=== PATIENT | female | born 1950 | race Hispanic/Latino ===

== ENCOUNTER 2017-01-24 17:25 | Inpatient (IN) | payer OTHER ==
--- NOTE | 2017-01-24 18:29 | Emergency Department Report ---
ED General Adult HPI - General Chief complaint: Extremity Injury, Lower Stated complaint: RT LEG PAIN/LOW 02 Time Seen by Provider: 01/24/17 18:28 Source: patient, EMS (ems notes not available at time of chart dictation), RN notes reviewed Mode of arrival: Stretcher Limitations: Physical Limitation - History of Present Illness Initial comments: This is a 66-year-old female. She is previously unknown to me. She does not have a primary care doctor. She denies chronic medical conditions that she is aware of. She is brought to the hospital by EMS. Patient complains of shortness of breath , weakness, abdominal distention, lower extremity swelling. This is going on for the past 3-4 days. There is no chest pain. There is positive shortness of breath. Patient reports no recent trips. No recent hospital admissions. No recent surgeries. No hematemesis. No bright red blood per rectum. No intracranial hemorrhage. Mild cough. As per triage nurse documentation, patient is found to be hypoxic with a pulse ox of 70%. A stat arterial blood gas demonstrated hypoxemic respiratory failure , with a partially compensated respiratory acidosis. I had an extensive discussion with the patient and her daughter. The patient was started on BiPAP therapy. The patient and her daughter gave and written and verbal consent to have an ultrasound done of her heart, and my bedside echocardiogram demonstrated a hyperdynamic left ventricle, no large effusion, and what appeared to be a dilated right atrium and right ventricle. The patient was started on BiPAP therapy, case was discussed with vascular surgery, Dr. Lr, as we anticipate that the patient may have a submassive or massive pulmonary embolus. He recommends initiation of empiric heparin therapy, bolus and drip. The patient indicated no constant indications to systemic anticoagulation. The case was also discussed with the ICU physician, Dr. Salomon, who agreed with this plan of care, authorized triaged to the ICU. -: Gradual Location: abdomen, right, lower extremity Consistency: constant Improves with: rest Worsens with: movement Associated Symptoms: malaise, shortness of breath, weakness - Related Data Home Medications Medication Instructions Recorded Confirmed Last Taken No Known Home Medications [No 01/24/17 01/24/17 Unknown Reported Home Medications] Allergies Allergy/AdvReac Type Severity Reaction Status Date / Time phenobarbital Allergy Anaphylaxis Verified 01/24/17 18:23 ED Review of Systems ROS: Stated complaint: RT LEG PAIN/LOW 02 Other details as noted in HPI Constitutional: malaise, weakness ENT: congestion. denies: epistaxis Respiratory: shortness of breath Cardiovascular: dyspnea on exertion, edema Gastrointestinal: abdominal pain Genitourinary: as per HPI Musculoskeletal: joint swelling, arthralgia, myalgia Skin: denies: lesions Neurological: weakness ED Past Medical Hx - Medications Home Medications: Home Medications Medication Instructions Recorded Confirmed Last Taken Type No Known Home Medications [No 01/24/17 01/24/17 Unknown History Reported Home Medications] ED Physical Exam - General Limitations: Physical Limitation General appearance: alert, in no apparent distress - Head Head exam: Present: atraumatic, normocephalic - Eye Eye exam: Present: normal appearance, EOMI. Absent: nystagmus - ENT ENT exam: Present: normal exam, normal orophraynx, mucous membranes moist, normal external ear exam - Neck Neck exam: Present: normal inspection, full ROM. Absent: tenderness, meningismus - Respiratory Respiratory exam: Present: respiratory distress - Cardiovascular Cardiovascular Exam: Present: normal rhythm, tachycardia, normal heart sounds. Absent: systolic murmur, diastolic murmur, rubs, gallop - GI/Abdominal GI/Abdominal exam: Present: soft, distended, normal bowel sounds, other ( anasarca is noted). Absent: tenderness, guarding, rebound, rigid, pulsatile mass - Extremities Exam Extremities exam: Present: normal inspection, normal capillary refill, pedal edema, calf tenderness - Back Exam Back exam: Present: normal inspection, full ROM. Absent: tenderness, CVA tenderness (R), CVA tenderness (L), muscle spasm, paraspinal tenderness, vertebral tenderness - Neurological Exam Neurological exam: Present: alert, oriented X3, other (Extraocular movements intact. Tongue midline. No facial droop. Facial sensation intact to light touch in the V1, V2, V3 distribution bilaterally. 5 and 5 strength in 4 extremities.. Sensation is intact to light touch in 4 extremities.). Absent: motor sensory deficit - Psychiatric Psychiatric exam: Present: normal affect, normal mood - Skin Skin exam: Present: warm, dry, intact, normal color. Absent: rash ED Course Vital Signs 01/24/17 01/24/17 01/24/17 17:59 18:04 18:10 Temperature 98.2 F Pulse Rate 122 H 118 H Respiratory 16 17 Rate Blood Pressure 136/86 Blood Pressure [Left] O2 Sat by Pulse 98 88 90 Oximetry 01/24/17 01/24/17 01/24/17 18:20 18:30 18:40 Temperature Pulse Rate 120 H 118 H 119 H Respiratory 34 H 20 32 H Rate Blood Pressure 136/86 136/86 136/95 Blood Pressure [Left] O2 Sat by Pulse 88 87 Oximetry 01/24/17 01/24/17 01/24/17 18:50 18:57 19:00 Temperature Pulse Rate 118 H 100 H 114 H Respiratory 21 30 H 14 Rate Blood Pressure 136/95 147/102 Blood Pressure [Left] O2 Sat by Pulse 81 L 94 91 Oximetry 01/24/17 01/24/17 01/24/17 19:14 19:21 19:22 Temperature Pulse Rate 114 H 114 H 114 H Respiratory 12 25 H 18 Rate Blood Pressure 155/97 Blood Pressure 155/97 [Left] O2 Sat by Pulse 92 92 92 Oximetry 01/24/17 01/24/17 01/24/17 19:43 19:51 20:00 Temperature Pulse Rate 119 H 120 H Respiratory 23 22 Rate Blood Pressure 140/89 139/89 144/93 Blood Pressure [Left] O2 Sat by Pulse 96 87 93 Oximetry 01/24/17 01/24/17 01/24/17 20:11 20:21 20:30 Temperature Pulse Rate 119 H 117 H 117 H Respiratory 12 20 26 H Rate Blood Pressure 155/97 147/91 127/85 Blood Pressure [Left] O2 Sat by Pulse 94 92 91 Oximetry 01/24/17 01/24/17 01/24/17 20:41 20:51 21:00 Temperature Pulse Rate 117 H 116 H 114 H Respiratory 22 14 15 Rate Blood Pressure 127/85 143/89 146/81 Blood Pressure [Left] O2 Sat by Pulse 89 90 91 Oximetry 01/24/17 01/24/17 01/24/17 21:11 21:21 21:30 Temperature Pulse Rate 116 H 116 H 116 H Respiratory 19 21 23 Rate Blood Pressure 146/81 139/83 140/92 Blood Pressure [Left] O2 Sat by Pulse 89 89 90 Oximetry 01/24/17 01/24/17 01/24/17 21:41 21:51 22:00 Temperature Pulse Rate 115 H 115 H 115 H Respiratory 22 17 11 L Rate Blood Pressure 140/92 131/83 144/90 Blood Pressure [Left] O2 Sat by Pulse 90 90 91 Oximetry 01/24/17 01/24/17 01/24/17 22:11 22:21 22:30 Temperature Pulse Rate 114 H 113 H 114 H Respiratory 21 21 25 H Rate Blood Pressure 144/90 134/87 131/86 Blood Pressure [Left] O2 Sat by Pulse 90 90 89 Oximetry 01/24/17 01/24/17 22:41 23:15 Temperature Pulse Rate 113 H 112 H Respiratory 19 21 Rate Blood Pressure 131/83 Blood Pressure [Left] O2 Sat by Pulse 91 96 Oximetry - Reevaluation(s) Reevaluation #1: 01/24/17 19:36 differential diagnosis: Massive versus massive pulmonary embolus , congestive heart failure, pulmonary hypertension, pneumonia, multifactorial respiratory failure Reevaluation #2: 01/24/17 20:47 patient looking remarkably improved on BiPAP therapy. CT scan of the chest is negative for clots. Congestive heart failure is suspected. Heparin drip is discontinued. Vascular surgery consult was canceled. Given obesity, body habitus, patient most likely has obesity hypoventilation syndrome, obstructive sleep apnea, pulmonary hypertension, all of which are likely contributing to acute decompensation including right-sided heart failure. A Weller catheter is placed. High dose Lasix as ordered. Hospital physician, , except the patient to their service. Case is discussed with the milk of lime slaker on-call, Dr. Renee, who agrees with plan of care, will see patient as a consult. ED Medical Decision Making - Lab Data Result diagrams: 01/24/17 19:25 01/24/17 18:50 Vital Signs 01/24/17 01/24/17 01/24/17 17:59 18:04 18:10 Temperature 98.2 F Pulse Rate 122 H 118 H Respiratory 16 17 Rate Blood Pressure 136/86 Blood Pressure [Left] O2 Sat by Pulse 98 88 90 Oximetry 01/24/17 01/24/17 01/24/17 18:57 19:14 19:22 Temperature Pulse Rate 100 H 114 H 114 H Respiratory 30 H 12 18 Rate Blood Pressure Blood Pressure 155/97 [Left] O2 Sat by Pulse 94 92 92 Oximetry Lab Results 01/24/17 01/24/17 01/24/17 Range/Units 18:42 18:50 18:50 WBC RBC Hgb Hct MCV MCH MCHC RDW Plt Count Lymph % (Auto) [place] % (Auto) Eos % (Auto) Baso % (Auto) Lymph # [place] # Eos # Baso # Add Manual Diff Seg Neutrophils % Seg Neutrophils # PT 15.9 H (12.2-14.9) Sec. INR 1.28 H (0.87-1.13) APTT 29.0 (24.2-36.6) Sec. D-Dimer 1566.79 H (0-234) ng/mlDDU POC ABG pH 7.330 L (7.35-7.45) POC ABG pCO2 73.5 H (35-45) POC ABG pO2 36 L (80-105) POC ABG HCO3 38.7 POC ABG Total CO2 41 POC ABG O2 Sat 62 POC ABG Base Excess 13 FiO2 21 % Sodium 140 (137-145) mmol/L Potassium 5.5 H (3.6-5.0) mmol/L Chloride 94.7 L (98-107) mmol/L Carbon Dioxide 35 H (22-30) mmol/L Anion Gap 16 mmol/L BUN 26 H (7-17) mg/dL Creatinine 1.1 (0.7-1.2) mg/dL Estimated GFR 50 ml/min BUN/Creatinine Ratio 23.63 % Glucose 128 H (65-100) mg/dL Calcium 9.5 (8.4-10.2) mg/dL Total Bilirubin 1.90 H (0.1-1.2) mg/dL AST 69 H (5-40) units/L ALT 52 (7-56) units/L Total Creatine Kinase (30-135) units/L NT-Pro-B Natriuret Pep (0-900) pg/mL Total Protein 7.0 (6.3-8.2) g/dL Albumin 3.5 L (3.9-5) g/dL Albumin/Globulin Ratio 1.0 % 01/24/17 01/24/17 01/24/17 Range/Units 18:50 18:50 19:25 WBC TNR RBC TNR Hgb TNR Hct TNR MCV TNR MCH TNR MCHC TNR RDW TNR Plt Count TNR Lymph % (Auto) TNR [place] % (Auto) TNR 12.1 H Eos % (Auto) TNR 0.2 Baso % (Auto) TNR Lymph # TNR [place] # TNR 0.9 H Eos # TNR 0.0 Baso # TNR 0.2 H Add Manual Diff TNR Seg Neutrophils % TNR 77.7 H Seg Neutrophils # TNR 5.5 PT (12.2-14.9) Sec. INR (0.87-1.13) APTT (24.2-36.6) Sec. D-Dimer (0-234) ng/mlDDU POC ABG pH (7.35-7.45) POC ABG pCO2 (35-45) POC ABG pO2 (80-105) POC ABG HCO3 POC ABG Total CO2 POC ABG O2 Sat POC ABG Base Excess FiO2 % Sodium (137-145) mmol/L Potassium (3.6-5.0) mmol/L Chloride (98-107) mmol/L Carbon Dioxide (22-30) mmol/L Anion Gap mmol/L BUN (7-17) mg/dL Creatinine (0.7-1.2) mg/dL Estimated GFR ml/min BUN/Creatinine Ratio % Glucose (65-100) mg/dL Calcium (8.4-10.2) mg/dL Total Bilirubin (0.1-1.2) mg/dL AST (5-40) units/L ALT (7-56) units/L Total Creatine Kinase 119 (30-135) units/L NT-Pro-B Natriuret Pep 9742 H (0-900) pg/mL Total Protein (6.3-8.2) g/dL Albumin (3.9-5) g/dL Albumin/Globulin Ratio % - EKG Data -: EKG Interpreted by Me Rate: tachycardia - EKG Data When compared to previous EKG there are: previous EKG unavailable 01/24/17 19:37 EKG demonstrates sinus tachycardia, 116 bpm, incomplete right bundle branch block, normal intervals, right axis deviation, not consistent with STEMI, limited by motion artifact. - Radiology Data Radiology results: report reviewed, image reviewed xr chest: cardiomegaly? chf CT scan of chest demonstrates no pulmonary embolus. Pleural effusions are noted. Cardiomegaly is noted. No dissection is noted. Critical Care Time: Yes Critical care time in (mins) excluding proc time.: 90 Critical care attestation.: If time is entered above; I have spent that time in minutes in the direct care of this critically ill patient, excluding procedure time. Critical Care Time: Critical care time includes multiple bedside evaluations, interpretation of laboratory studies, radiology studies, discussion with multiple consulting services, including hospital medicine, critical care medicine and vascular surgery. This does not include procedure time. ED Disposition Clinical Impression: Acute hypoxemic respiratory failure Disposition: OP ADMITTED IP TO THIS HOSP Is pt being admited?: Yes Condition: Critical
[2017-01-24 18:48] LABS: ISTAT Base Excess 13; ISTAT DEVICE 0; ISTAT HCO3 38.7; ISTAT PCO2 73.5 (35-45); ISTAT PO2 36 (80-105); ISTAT SO2 62; ISTAT TCO2 41
[2017-01-24 19:20] LABS: Eosinophils % (Auto) TNR % (0.0-4.3); Hematocrit TNR % (30.3-42.9); Hemoglobin TNR gm/dl (10.1-14.3); Mean Corpuscular HGB Conc TNR % (30-34); Mean Corpuscular Hemoglobin TNR pg (28-32); Mean Corpuscular Volume TNR fl (79-97); Mean Platelet Volume TNR fl (6-12); Platelet Count TNR K/mm3 (140-440); Red Blood Count TNR M/mm3 (3.65-5.03); Red Cell Distribution Width TNR % (13.2-15.2); White Blood Count TNR K/mm3 (4.5-11.0)
[2017-01-24 19:21] LABS: Basophils % (Auto) TNR % (0.0-1.8); INR 1.28 (0.87-1.13)
[2017-01-24 19:22] LABS: Diff Status TNR
[2017-01-24] MEDS ORDERED: HEPARIN 10,000 UNITS/10 ML IV ONE (19:22)
[2017-01-24 19:24] LABS: Albumin 3.5 g/dL (3.9-5); BUN/Creatinine Ratio 23.63; Bilirubin,Total 1.9 mg/dL (0.1-1.2); Calcium 9.5 mg/dL (8.4-10.2); Chloride 94.7 mmol/L (98-107); Potassium 5.5 mmol/L (3.6-5.0)
[2017-01-24 19:26] LABS: Creatine Kinase 119 units/L (30-135)
[2017-01-24] MEDS ORDERED: NACL ONE (19:27)
--- NOTE | 2017-01-24 19:32 | XRay Report ---
FINAL REPORT PROCEDURE: Chest. TECHNIQUE: Portable AP view. HISTORY: Shortness of breath. COMPARISON: No prior studies are available for comparison. FINDINGS: The radiograph is underpenetrated. The heart size is borderline. Pulmonary vascularity is prominent. The patient could have congestive heart failure. There is probably elevation of the left hemidiaphragm. There is some blunting of the left costophrenic angle consistent with a small pleural effusion. The soft tissues and regional skeleton are unremarkable. IMPRESSION: Limited study. Question congestive heart failure. Small left pleural effusion. Repeat radiograph recommended.
[2017-01-24 19:36] LABS: Basophils % (Auto) 2.5 % (0.0-1.8); Eosinophils % (Auto) 0.2 % (0.0-4.3); Mean Corpuscular HGB Conc 31 % (30-34); Mean Corpuscular Hemoglobin 27 pg (28-32); Mean Corpuscular Volume 89 fl (79-97); Platelet Count 146 K/mm3 (140-440); Red Blood Count 6.91 M/mm3 (3.65-5.03); Red Cell Distribution Width 18.9 % (13.2-15.2)
[2017-01-24 19:51] LABS: Hemoglobin 18.8 gm/dl (10.1-14.3)
[2017-01-24 19:52] LABS: Hematocrit 61.3 % (30.3-42.9)
[2017-01-24 19:56] LABS: INR 1.32 (0.87-1.13); Partial Thromboplastin Time 26.4 Sec. (24.2-36.6)
[2017-01-24] MEDS ORDERED: HEPARIN/ 0.45% NACL-25,000 UNIT/500 ML 25,000 UNIT/500 ML BAG IV SCH (20:00)
[2017-01-24] MEDS ORDERED: LASIX 100 MG in NACL 0.9% 50 ML IV ONE (20:31)
--- NOTE | 2017-01-24 20:41 | Cat Scan Report ---
FINAL REPORT PROCEDURE: CT ANGIO CHEST TECHNIQUE: Computerized tomographic angiography of the chest was performed after the IV injection of iodinated nonionic contrast including image processing. The image data was postprocessed using 2-dimensional multiplanar reformatted (MPR) and 3-dimensional (MIP and/or volume rendered) techniques. HISTORY: pe COMPARISON: No prior studies are available for comparison. FINDINGS: Heart and pericardium: Normal. Thoracic aorta: There is no thoracic aortic aneurysm or dissection.. Pulmonary vasculature: There is no pulmonary embolism.. Lymph nodes: There are borderline enlarged mediastinal lymph nodes.. Lungs: There is suboptimal inspiration. There atelectasis at the lung bases greater on the left.. Pleural space: There are bilateral pleural effusions. There are no pneumothoraces.. Musculoskeletal structures: No significant abnormality. Upper abdominal structures: No significant abnormality. IMPRESSION: There is no thoracic aortic aneurysm or dissection.. There is no pulmonary embolism.. There is suboptimal inspiration. There atelectasis at the lung bases greater on the left.. There are bilateral pleural effusions. There are no pneumothoraces..
--- NOTE | 2017-01-24 20:47 | Cat Scan Report ---
FINAL REPORT PROCEDURE: CT ABDOMEN PELVIS W CON TECHNIQUE: Computerized axial tomography of the abdomen and pelvis was performed after the IV injection of iodinated nonionic contrast. HISTORY: abd distension ? ivs thrombosis COMPARISON: No prior studies are available for comparison. FINDINGS: Visualized lower thorax: There are bilateral pleural effusions. There is atelectasis at the lung bases.. Liver: There is no liver mass.. Spleen: Normal size and attenuation. Gallbladder and biliary system: Normal. Pancreas: Normal. Adrenals: Normal. Kidneys: Normal. GI tract: There are diverticula of the colon. There is no diverticulitis or colitis, obstruction or mass. The appendix is not identified.. Lymph nodes and mesentery: Normal. Vasculature: Aorta is normal in caliber.. Bladder: Normal. Reproductive organs: Uterus is atrophic. There is a small calcified fibroids.. Peritoneum: There is a large amount of ascites. There is no free air, abscess or adenopathy.. Musculoskeletal structures: No significant abnormality. Other: None. IMPRESSION: There is no liver mass.. There are diverticula of the colon. There is no diverticulitis or colitis, obstruction or mass. The appendix is not identified.. There is a large amount of ascites. There is no free air, abscess or adenopathy.
[2017-01-24] MEDS ORDERED: PERCOCET 5/325 PO PRN (21:35)
[2017-01-24] MEDS ORDERED: TYLENOL PO PRN (21:35)
[2017-01-24] MEDS ORDERED: MILK OF MAGNESIA PO PRN (21:35)
[2017-01-24] MEDS ORDERED: DULCOLAX PR PRN (21:35)
[2017-01-24] MEDS ORDERED: ZOFRAN IV PRN (21:35)
--- NOTE | 2017-01-24 21:39 | History and Physical Report ---
History of Present Illness Date of examination: 01/24/17 History of present illness: 66-year-old woman with no medical problems comes emergency room with complaints of lower extremity edema 1 month and not feeling well Patient denies chest pain, palpitation, shortness of breath, cough, abdominal pain, hematochezia, dysuria, frequency, focal weakness, dysarthria, fever chills , polydipsia polyuria, hot or cold intolerance, easy bruisability, or rash or bleeding from mucosal membrane, rhinorrhea, epistaxis, earache, tinnitus, blurry vision, eye discharge, anxiety, depression. Other review of systems negative PAST SURGICAL HISTORY: None SOCIAL HISTORY:Denies alcohol, tobacco, drugs FAMILY HISTORY: Hypertension Medications and Allergies Allergies Allergy/AdvReac Type Severity Reaction Status Date / Time phenobarbital Allergy Anaphylaxis Verified 01/24/17 18:23 Home Medications Medication Instructions Recorded Confirmed Last Taken Type No Known Home Medications [No 01/24/17 01/24/17 Unknown History Reported Home Medications] Active Meds: Active Medications Heparin Sodium/Sodium Chloride (Heparin/ 0.45% Nacl-25,000 Unit/500 Ml) 25,000 unit in 500 mls @ 30 mls/hr IV TITR SINTIA; 1,500 UNITS/HR PRN Reason: Protocol Last Admin: 01/24/17 20:32 Dose: 1,500 units/hr, 30 mls/hr Exam - Physical Exam Narrative exam: Gen. appearance: Patient lying in bed, no apparent distress HEENT: Normocephalic, atraumatic, pupils equally round and reactive to light, extraocular movement intact, and no sclericterus,. No JVD or thyromegaly or nodule,neck supple, no carotid bruit ,mucous membranes moist, no exudate or erythema Heart: S1, S2, regular rate and rhythm Lungs: Clear to auscultation bilaterally, breathing comfortable Abdomen: Positive bowel sounds, nontender, nondistended, no organomegaly Extremity: 2+ edema, no cyanosis, clubbing Skin: No rash, nodules, warm, dry Neuro: Oriented 3, cranial nerves II-12 intact, speech is fluent, motor and sensory intact - Constitutional Vitals: Temp Pulse Resp BP Pulse Ox 98.2 F 116 H 21 139/83 89 01/24/17 17:59 01/24/17 21:21 01/24/17 21:21 01/24/17 21:21 01/24/17 21:21 Results - Labs CBC & Chem 7: 01/24/17 19:25 01/24/17 18:50 Labs: Abnormal lab results 01/24/17 01/24/17 01/24/17 Range/Units 18:42 18:50 18:50 RBC (3.65-5.03) M/mm3 Hgb (10.1-14.3) gm/dl Hct (30.3-42.9) % MCH (28-32) pg RDW (13.2-15.2) % Lymph % (Auto) (13.4-35.0) % [place] % (Auto) (0.0-7.3) % Baso % (Auto) (0.0-1.8) % Lymph # (1.2-5.4) K/mm3 [place] # (0.0-0.8) K/mm3 Baso # (0.0-0.1) K/mm3 Seg Neutrophils % (40.0-70.0) % PT 15.9 H (12.2-14.9) Sec. INR 1.28 H (0.87-1.13) D-Dimer 1566.79 H (0-234) ng/mlDDU POC ABG pH 7.330 L (7.35-7.45) POC ABG pCO2 73.5 H (35-45) POC ABG pO2 36 L (80-105) Potassium 5.5 H (3.6-5.0) mmol/L Chloride 94.7 L (98-107) mmol/L Carbon Dioxide 35 H (22-30) mmol/L BUN 26 H (7-17) mg/dL Glucose 128 H (65-100) mg/dL Total Bilirubin 1.90 H (0.1-1.2) mg/dL AST 69 H (5-40) units/L NT-Pro-B Natriuret Pep (0-900) pg/mL Albumin 3.5 L (3.9-5) g/dL 01/24/17 01/24/17 01/24/17 Range/Units 18:50 19:25 19:27 RBC 6.91 H (3.65-5.03) M/mm3 Hgb 18.8 H (10.1-14.3) gm/dl Hct 61.3 H* (30.3-42.9) % MCH 27 L (28-32) pg RDW 18.9 H (13.2-15.2) % Lymph % (Auto) 7.5 L (13.4-35.0) % [place] % (Auto) 12.1 H (0.0-7.3) % Baso % (Auto) 2.5 H (0.0-1.8) % Lymph # 0.5 L (1.2-5.4) K/mm3 [place] # 0.9 H (0.0-0.8) K/mm3 Baso # 0.2 H (0.0-0.1) K/mm3 Seg Neutrophils % 77.7 H (40.0-70.0) % PT 16.3 H (12.2-14.9) Sec. INR 1.32 H (0.87-1.13) D-Dimer (0-234) ng/mlDDU POC ABG pH (7.35-7.45) POC ABG pCO2 (35-45) POC ABG pO2 (80-105) Potassium (3.6-5.0) mmol/L Chloride (98-107) mmol/L Carbon Dioxide (22-30) mmol/L BUN (7-17) mg/dL Glucose (65-100) mg/dL Total Bilirubin (0.1-1.2) mg/dL AST (5-40) units/L NT-Pro-B Natriuret Pep 9742 H (0-900) pg/mL Albumin (3.9-5) g/dL - Imaging and Cardiology EKG: image reviewed Chest x-ray: image reviewed CT scan - abdomen: report reviewed CT scan - chest: report reviewed Assessment and Plan Acute respiratory failure Acute CHF exacerbation, probably diastolic dysfunction Hyperkalemia Thrombocytopenia Admit to medicine Start diuresis with IV Lasix, continue BiPAP Monitor I's and O's, daily weights Start beta elizabeth, CONNIE inhibitor, aspirin Check cardiac enzymes, echo, consult cardiology Treatment for hyperkalemia Dvt prophylaxis with SCD
[2017-01-24 23:23] LABS: Creatine Kinase MB 6.2 ng/mL (0.0-4.0)
[2017-01-25] MEDS: LOPRESSOR PO SCH ×3 (00:29→22:27)
[2017-01-25] MEDS ORDERED: KIONEX PO ONE ×3 (00:41→11:00)
[2017-01-25 04:55] LABS: Basophils % (Auto) 0.6 % (0.0-1.8); Mean Corpuscular HGB Conc 30 % (30-34); Mean Corpuscular Hemoglobin 27 pg (28-32); Mean Corpuscular Volume 90 fl (79-97); Platelet Count 126 K/mm3 (140-440); Red Blood Count 6.88 M/mm3 (3.65-5.03); Red Cell Distribution Width 19.4 % (13.2-15.2); White Blood Count 9.2 K/mm3 (4.5-11.0)
[2017-01-25 05:14] LABS: BUN/Creatinine Ratio 23.33; Calcium 9.3 mg/dL (8.4-10.2); Chloride 94.1 mmol/L (98-107)
[2017-01-25 05:16] LABS: Creatine Kinase MB 5.5 ng/mL (0.0-4.0)
[2017-01-25 05:46] LABS: Hemoglobin 18.5 gm/dl (10.1-14.3)
[2017-01-25 06:13] LABS: Potassium 5.7 mmol/L (3.6-5.0)
[2017-01-25] MEDS: LASIX IV SCH ×2 (06:32→19:11)
[2017-01-25] MEDS ORDERED: NACL 0.9% 500 ML 500 ML IV ONE ×2 (08:08→23:56)
--- NOTE | 2017-01-25 09:49 | Progress Note ---
Assessment and Plan 66-year-old woman with no medical problems comes emergency room with complaints of lower extremity edema 1 month and not feeling well Acute hypoxic respiratory failure Acute CHF exacerbation, probably diastolic dysfunction Hyperkalemia Thrombocytopenia Severe Anemia Ascitis on abdominal CT - transfuse 1 unit PRBC - ordered paracenthesis - cont diuresis with IV Lasix, continue BiPAP PRN - Monitor I's and O's, daily weights - cont beta elizabeth, CONNIE inhibitor, aspirin - Check cardiac enzymes, echo, consulted cardiology - Treatment for hyperkalemia and monitor K level - Dvt prophylaxis with SCD Subjective Date of service: 01/25/17 Interval history: Patient seen and examined. Medical records and medication list reviewed. No acute event overnight noted by the RN. Patient c/o difficulty breathing on rest. Patient is tolerating diet. Discussed plan of care at bedside with patient. Objective - Exam Narrative Exam: GENERAL: elderly obese female lying on bed appeared to be in moderate discomfort. appears very lathergic HEENT: Normocephalic. Atraumatic. No conjunctival congestion or icterus. Patient has dry mucous membranes. NECK: Supple. Trachea midline. CHEST/LUNGS: Crackles auscultated bilaterally, breathing nonlabored. on nasal mask with supplimental O2 HEART/CARDIOVASCULAR: Regular in rate and rhythm. S1 and S2 positive. ABDOMEN: Abdomen is soft, nontender. Patient has normal bowel sounds. SKIN: There is no rash. Warm and dry. NEURO: No focal motor deficit. Follows command. MUSCULOSKELETAL: No joint effusion or tenderness. EXTRIMITY: No edema, no cyanosis or clubbing. PSYCH: Cooperative. - Constitutional Vitals: Vital Signs - 12hr 01/24/17 01/24/17 01/24/17 21:51 22:00 22:11 Temperature Pulse Rate 115 H 115 H 114 H Pulse Rate [ Left] Respiratory 17 11 L 21 Rate Blood Pressure 131/83 144/90 144/90 Blood Pressure [Left Arm] O2 Sat by Pulse 90 91 90 Oximetry 01/24/17 01/24/17 01/24/17 22:21 22:30 22:41 Temperature Pulse Rate 113 H 114 H 113 H Pulse Rate [ Left] Respiratory 21 25 H 19 Rate Blood Pressure 134/87 131/86 131/83 Blood Pressure [Left Arm] O2 Sat by Pulse 90 89 91 Oximetry 01/24/17 01/24/17 01/25/17 23:15 23:45 00:18 Temperature 97.5 F L Pulse Rate 112 H 113 H Pulse Rate [ 114 H Left] Respiratory 21 24 Rate Blood Pressure Blood Pressure 129/90 [Left Arm] O2 Sat by Pulse 96 100 Oximetry 01/25/17 01/25/17 01/25/17 00:29 00:30 05:42 Temperature 99.0 F Pulse Rate 113 H Pulse Rate [ 113 H 104 H Left] Respiratory 22 20 Rate Blood Pressure 131/83 Blood Pressure 132/77 [Left Arm] O2 Sat by Pulse 92 Oximetry 01/25/17 09:34 Temperature 97.6 F Pulse Rate Pulse Rate [ Left] Respiratory 16 Rate Blood Pressure Blood Pressure 122/66 [Left Arm] O2 Sat by Pulse 101 H Oximetry - Labs CBC & Chem 7: 01/25/17 03:33 01/25/17 03:33 Labs: Abnormal lab results 01/24/17 01/25/17 01/25/17 Range/Units 21:54 03:33 03:33 RBC 6.88 H (3.65-5.03) M/mm3 Hgb 18.5 H (10.1-14.3) gm/dl Hct 60.0 H* (30.3-42.9) % MCH 27 L (28-32) pg RDW 19.4 H (13.2-15.2) % Plt Count 126 L (140-440) K/mm3 Lymph % (Auto) 3.8 L (13.4-35.0) % [place] % (Auto) 13.2 H (0.0-7.3) % Lymph # 0.3 L (1.2-5.4) K/mm3 [place] # 1.2 H (0.0-0.8) K/mm3 Seg Neutrophils % 82.4 H (40.0-70.0) % Potassium (3.6-5.0) mmol/L Chloride (98-107) mmol/L BUN (7-17) mg/dL Glucose (65-100) mg/dL CK-MB (CK-2) 6.2 H 5.5 H (0.0-4.0) ng/mL CK-MB (CK-2) Rel Index 4.7 H 5.6 H (0-4) Crossmatch 01/25/17 01/25/17 Range/Units 03:33 08:33 RBC (3.65-5.03) M/mm3 Hgb (10.1-14.3) gm/dl Hct (30.3-42.9) % MCH (28-32) pg RDW (13.2-15.2) % Plt Count (140-440) K/mm3 Lymph % (Auto) (13.4-35.0) % [place] % (Auto) (0.0-7.3) % Lymph # (1.2-5.4) K/mm3 [place] # (0.0-0.8) K/mm3 Seg Neutrophils % (40.0-70.0) % Potassium 5.7 H (3.6-5.0) mmol/L Chloride 94.1 L (98-107) mmol/L BUN 28 H (7-17) mg/dL Glucose 115 H (65-100) mg/dL CK-MB (CK-2) (0.0-4.0) ng/mL CK-MB (CK-2) Rel Index (0-4) Crossmatch See Detail
[2017-01-25] MEDS ORDERED: LOVENOX SUB-Q SCH (10:00)
[2017-01-25] MEDS: ZESTRIL PO SCH (10:14)
[2017-01-25] MEDS ORDERED: PNEUMOVAX 23 IM ONE (12:00)
[2017-01-25] MEDS ORDERED: FLUARIX QUAD 2016-2017(36 MOS+) IM ONE (12:00)
--- NOTE | 2017-01-25 13:54 | Consultation ---
History of Present Illness Consult date: 01/25/17 Consult reason: congestive heart failure Medications and Allergies Allergies Allergy/AdvReac Type Severity Reaction Status Date / Time phenobarbital Allergy Anaphylaxis Verified 01/24/17 18:23 Home Medications Medication Instructions Recorded Confirmed Last Taken Type No Known Home Medications [No 01/24/17 01/24/17 Unknown History Reported Home Medications] Active Meds: Active Medications Acetaminophen (Tylenol) 650 mg PO Q4H PRN PRN Reason: Pain MILD(1-3)/Fever >100.5/MADRID Bisacodyl (Dulcolax) 10 mg DC QDAY PRN PRN Reason: Constipation unrelieved by MOM Furosemide (Lasix) 20 mg IV BID@0600,1800 [facility] Last Admin: 01/25/17 06:32 Dose: 20 mg Lisinopril (Zestril) 2.5 mg PO QDAY [facility] Magnesium Hydroxide (Milk Of Magnesia) 30 ml PO Q4H PRN PRN Reason: Constipation Metoprolol Tartrate (Lopressor) 12.5 mg PO BID [facility] Last Admin: 01/25/17 00:29 Dose: 12.5 mg Ondansetron HCl (Zofran) 4 mg IV Q4H PRN PRN Reason: N/V unrelieved by Reglan Oxycodone/Acetaminophen (Percocet 5/325) 1 tab PO Q6H PRN PRN Reason: Pain, Moderate (4-6) Physical Examination Vital Signs Temp Pulse Resp BP Pulse Ox 98.2 F 122 H 16 136/86 98 01/24/17 17:59 01/24/17 17:59 01/24/17 17:59 01/24/17 17:59 01/24/17 17:59 Results 01/25/17 03:33 01/25/17 03:33 Cardiac Enzymes 01/24/17 01/25/17 Range/Units 21:54 03:33 CK-MB (CK-2) 6.2 H 5.5 H (0.0-4.0) ng/mL CBC 01/25/17 Range/Units 03:33 WBC 9.2 (4.5-11.0) K/mm3 RBC 6.88 H (3.65-5.03) M/mm3 Hgb 18.5 H (10.1-14.3) gm/dl Hct 60.0 H* (30.3-42.9) % Plt Count 126 L (140-440) K/mm3 Lymph # 0.3 L (1.2-5.4) K/mm3 George # 1.2 H (0.0-0.8) K/mm3 Eos # 0.0 (0.0-0.4) K/mm3 Baso # 0.1 (0.0-0.1) K/mm3 Comprehensive Metabolic Panel 01/25/17 Range/Units 03:33 Sodium 139 (137-145) mmol/L Potassium 5.7 H (3.6-5.0) mmol/L Chloride 94.1 L (98-107) mmol/L Carbon Dioxide 29 (22-30) mmol/L BUN 28 H (7-17) mg/dL Creatinine 1.2 (0.7-1.2) mg/dL Glucose 115 H (65-100) mg/dL Calcium 9.3 (8.4-10.2) mg/dL
[2017-01-25 15:03] LABS: Basophils Body Fluid 0 %; Eosinophils Body Fluid 0 %; Reactive Lymph Body Fluid 0 %
--- NOTE | 2017-01-25 18:05 | Consultation ---
History of Present Illness Consult date: 01/25/17 Requesting physician: KASSIDY BOYCE Reason for consult: other (Acute Hypercapnic Hypoxemic Respiratory Failure) History of present illness: PULMONARY/CCM CONSULT NOTE (Full dictation # [id number]) Please see dictated notes for full details Medications and Allergies Allergies Allergy/AdvReac Type Severity Reaction Status Date / Time phenobarbital Allergy Anaphylaxis Verified 01/24/17 18:23 Home Medications Medication Instructions Recorded Confirmed Last Taken Type No Known Home Medications [No 01/24/17 01/24/17 Unknown History Reported Home Medications] Active Meds: Active Medications Acetaminophen (Tylenol) 650 mg PO Q4H PRN PRN Reason: Pain MILD(1-3)/Fever >100.5/MADRID Bisacodyl (Dulcolax) 10 mg DC QDAY PRN PRN Reason: Constipation unrelieved by MOM Furosemide (Lasix) 20 mg IV BID@0600,1800 [facility] Last Admin: 01/25/17 06:32 Dose: 20 mg Lisinopril (Zestril) 2.5 mg PO QDAY [facility] Magnesium Hydroxide (Milk Of Magnesia) 30 ml PO Q4H PRN PRN Reason: Constipation Metoprolol Tartrate (Lopressor) 12.5 mg PO BID [facility] Last Admin: 01/25/17 00:29 Dose: 12.5 mg Ondansetron HCl (Zofran) 4 mg IV Q4H PRN PRN Reason: N/V unrelieved by Reglan Oxycodone/Acetaminophen (Percocet 5/325) 1 tab PO Q6H PRN PRN Reason: Pain, Moderate (4-6) Physical Examination Vital signs: Vital Signs Temp Pulse Resp BP Pulse Ox 98.2 F 122 H 16 136/86 98 01/24/17 17:59 01/24/17 17:59 01/24/17 17:59 01/24/17 17:59 01/24/17 17:59 Results - Laboratory Findings CBC and BMP: 01/25/17 03:33 01/25/17 03:33 ABG POC ABG pH 7.330 (7.35-7.45) L 01/24/17 18:42 POC ABG pCO2 73.5 (35-45) H 01/24/17 18:42 POC ABG pO2 36 (80-105) L 01/24/17 18:42 POC ABG HCO3 38.7 01/24/17 18:42 POC ABG Total CO2 41 01/24/17 18:42 POC ABG O2 Sat 62 01/24/17 18:42 PT/INR, D-dimer PT 16.3 Sec. (12.2-14.9) H 01/24/17 19:27 INR 1.32 (0.87-1.13) H 01/24/17 19:27 D-Dimer 1566.79 ng/mlDDU (0-234) H 01/24/17 18:50 Abnormal lab findings: Abnormal Labs 01/24/17 01/25/17 01/25/17 21:54 03:33 03:33 RBC 6.88 H Hgb 18.5 H Hct 60.0 H* MCH 27 L RDW 19.4 H Plt Count 126 L Lymph % (Auto) 3.8 L [place] % (Auto) 13.2 H Lymph # 0.3 L [place] # 1.2 H Seg Neutrophils % 82.4 H Potassium Chloride BUN Glucose CK-MB (CK-2) 6.2 H 5.5 H CK-MB (CK-2) Rel Index 4.7 H 5.6 H Crossmatch 01/25/17 01/25/17 03:33 08:33 RBC Hgb Hct MCH RDW Plt Count Lymph % (Auto) [place] % (Auto) Lymph # [place] # Seg Neutrophils % Potassium 5.7 H Chloride 94.1 L BUN 28 H Glucose 115 H CK-MB (CK-2) CK-MB (CK-2) Rel Index Crossmatch See Detail
[2017-01-25 21:51] LABS: ISTAT Base Excess 7; ISTAT HCO3 36.2; ISTAT PCO2 116.4 (35-45); ISTAT PH 7.101 (7.35-7.45); ISTAT PO2 71 (80-105); ISTAT SO2 84; ISTAT TCO2 40
[2017-01-26 00:27] LABS: ISTAT Base Excess 9; ISTAT HCO3 37.4; ISTAT PCO2 99.2 (35-45); ISTAT PH 7.184 (7.35-7.45); ISTAT PO2 153 (80-105); ISTAT SO2 99; ISTAT TCO2 40
[2017-01-26] MEDS: LASIX IV SCH ×2 (05:42→19:09)
[2017-01-26 05:51] LABS: Basophils % (Auto) 0.5 % (0.0-1.8); Mean Corpuscular HGB Conc 30 % (30-34); Mean Corpuscular Hemoglobin 27 pg (28-32); Mean Corpuscular Volume 92 fl (79-97); Red Cell Distribution Width 19.5 % (13.2-15.2); White Blood Count 8.5 K/mm3 (4.5-11.0)
[2017-01-26 06:06] LABS: Albumin 3.1 g/dL (3.9-5); Albumin/Globulin Ratio 1.2 %; BUN/Creatinine Ratio 23.75; Bilirubin,Total 1.7 mg/dL (0.1-1.2); Calcium 8.5 mg/dL (8.4-10.2); Potassium 4.9 mmol/L (3.6-5.0); Total Protein 5.6 g/dL (6.3-8.2)
[2017-01-26 06:08] LABS: INR 1.28 (0.87-1.13)
[2017-01-26 06:14] LABS: Platelet Count 77 K/mm3 (140-440)
[2017-01-26 06:15] LABS: Hematocrit 55.8 % (30.3-42.9); Hemoglobin 16.6 gm/dl (10.1-14.3)
[2017-01-26 06:47] LABS: ISTAT Base Excess 10; ISTAT HCO3 38.2; ISTAT PCO2 99.2 (35-45); ISTAT PH 7.193 (7.35-7.45); ISTAT PO2 117 (80-105); ISTAT SO2 97; ISTAT TCO2 41
--- NOTE | 2017-01-26 07:33 | Ultrasound Report ---
ULTRASOUND PARACENTESIS HISTORY: Ascites. DESCRIPTION OF PROCEDURE: Informed consent was obtained. Sterile technique was utilized. 1% lidocaine for skin anesthesia. Using ultrasound guidance, a 5 [place] thoracentesis needle was advanced into the left lower quadrant peritoneal space. There was spontaneous return of clear yellow fluid. 800 cc of ascitic fluid was aspirated. 120 cc of fluid was sent to lab for analysis. No complications. IMPRESSION: Successful ultrasound-guided paracentesis.
--- NOTE | 2017-01-26 07:34 | Procedure Note ---
Date of procedure: 01/25/17 Pre-op diagnosis: ascites Post-op diagnosis: same Procedure: US paracentesis Findings: ascites Anesthesia: local Surgeon: ARMIDA MCCORMICK Estimated blood loss: none Pathology: list (120cc) Specimen disposition: to lab Condition: stable Disposition: floor
--- NOTE | 2017-01-26 08:34 | Admit Criteria Form ---
Admission Criteria Documentation: RESPIRATORY FAILURE GRG Clinical Indications for Admission to Inpatient Care (Place 'X' for any and all applicable criteria): Hospital admission is needed for appropriate care of the patient because of acute respiratory failure or insufficiency as indicated by ANY ONE of the following(1)(2)(3)(4)(5)(6)(7)(8): [ ]I. Mechanical ventilation needed (acute invasive or noninvasive) [X]II. Severe ventilation deficit as indicated by ANY ONE of the following (9) [X]a) Respiratory acidosis (pH less than 7.32 and partial pressure of carbon dioxide greater than 40 mm Hg (5.3 kPa)) [X]b) Partial pressure of carbon dioxide greater than 44 mm Hg (5.9 kPa ) (new) [ ]c) Airflow measurements less than 25% of predicted (eg, peak expiratory flow rate less than 100 L/minute) [ ]d) Forced vital capacity less than 15 mL/kg of ideal body weight, or 50% decrease in vital capacity from baseline [ ]III. Noncardiac pulmonary edema not resolving with rapid emergency treatment (8) [X]IV. Severe respiratory distress as indicated by ANY ONE of the following: [ ]a) Severe tachypnea (respiratory rate greater than 30, greater than 45 for 6-month-old, greater than 60 for ) [X]b) Severe hypoxemia (partial pressure of oxygen less than 50 mm Hg ( 6.7 kPa) on greater than 50% oxygen or partial pressure of oxygen to FIO2 ratio less than 200) [ ]c) Mental status deterioration from respiratory disease [ ]V. Airway obstruction or inadequate protection [A](10)(11) The original [employer] content created by [employer] has been revised. The portions of the content which have been revised are identified through the use of italic text or in bold, and [employer] has neither reviewed nor approved the modified material. All other unmodified content is copyright [employer]. Please see references footnoted in the original [employer] edition 2016 Admission Criteria Met: Yes
[2017-01-26] MEDS: LOPRESSOR PO SCH (09:32)
[2017-01-26] MEDS: ZESTRIL PO SCH (09:33)
[2017-01-26 10:31] LABS: ISTAT PCO2 TNR (35-45); ISTAT PH TNR (7.35-7.45); ISTAT PO2 TNR (80-105)
--- NOTE | 2017-01-26 11:05 | Progress Note ---
Assessment and Plan - Patient Problems (1) Acute hypoxemic respiratory failure Current Visit: Yes Status: Acute Plan to address problem: Restrict supplemental oxygen in view of hypercapnic respiratory failure. (2) Acute hypercapnic respiratory failure Current Visit: Yes Status: Acute Plan to address problem: Improving slowly. Continues to have respiratory acidosis. Continue with NIPPV, will adjust IPAP/EPAP. (3) Morbid obesity due to excess calories Current Visit: Yes Status: Acute Plan to address problem: Life style modifications Weight loss Will need formal PSG as an outpatient. (4) Pleural effusion, bilateral Current Visit: Yes Status: Acute Plan to address problem: Currently getting diuresis. Follow CXR and plan for therapeutic and diagnostic thoracentesis (5) Erythrocytosis Current Visit: Yes Status: Acute Plan to address problem: Probably secondary to chronic untreated hypoxia. Monitor for now, may need phlebotomy (6) COPD (chronic obstructive pulmonary disease) with acute bronchitis Current Visit: Yes Status: Acute Plan to address problem: Continue with bronchodilators Continue with antibiotics VTE prophylaxis (7) Hypotension Current Visit: Yes Status: Acute Qualifiers: Hypotension type: H Trimester: T Plan to address problem: Probably secondary to medications. Give 250ml saline bolus. Monitor hemodynamics closely Subjective Date of service: 01/26/17 Principal diagnosis: acute hypoxemic hypercapnic respiratory failure Interval history: Patient transferred to ICU for continuous NIPPV and closer monitoring. On levofloxacin for COPD with AE Daughter at the bedside- she states her mother was a smoker, quit about 30 years ago. She has not seen a physician in over 15 years. Patient was seen and examined. Vitals, labs, medications, chart reviewed. She received IV furosemide, metoprolol and lisinopril this morning, currently hypotensive SBP 80 with complaints of thirst. Objective - Exam Narrative Exam: GENERAL: elderly obese female lying on bed appeared to be in moderate discomfort. appears very lethargic HEENT: Normocephalic. Atraumatic. No conjunctival congestion or icterus. Patient has dry mucous membranes. NECK: Supple. Trachea midline. Poor oral hygiene CHEST/LUNGS: Crackles auscultated bilaterally, breathing non-labored. on nasal mask with BIPAP HEART/CARDIOVASCULAR: Regular in rate and rhythm. S1 and S2 positive. ABDOMEN: Abdomen is soft, non-tender. Patient has normal bowel sounds. Weller catheter with cleaar urine SKIN: There is no rash. Warm and dry. NEURO: No focal motor deficit. Follows command. MUSCULOSKELETAL: No joint effusion or tenderness. EXTREMITY: no edema, no cyanosis or clubbing. PSYCH: Cooperative. Vital Signs - 12hr 01/25/17 01/25/17 01/26/17 23:18 23:30 00:01 Temperature Pulse Rate 92 H 97 H Pulse Rate [ From Monitor] Respiratory 30 H 13 Rate Blood Pressure 118/74 109/66 O2 Sat by Pulse 96 97 92 Oximetry 01/26/17 01/26/17 01/26/17 00:30 01:00 01:30 Temperature Pulse Rate 97 H 96 H 96 H Pulse Rate [ From Monitor] Respiratory 28 H 30 H 30 H Rate Blood Pressure 106/70 109/69 112/69 O2 Sat by Pulse Oximetry 01/26/17 01/26/17 01/26/17 02:00 02:30 03:00 Temperature Pulse Rate 93 H 92 H 90 Pulse Rate [ From Monitor] Respiratory 25 H 30 H 30 H Rate Blood Pressure 110/67 111/66 112/61 O2 Sat by Pulse 98 95 Oximetry 01/26/17 01/26/17 01/26/17 03:30 04:00 04:26 Temperature 97.5 F L Pulse Rate 99 H 98 H 104 H Pulse Rate [ From Monitor] Respiratory 16 17 30 H Rate Blood Pressure 99/63 100/57 100/57 O2 Sat by Pulse 90 90 95 Oximetry 01/26/17 01/26/17 01/26/17 04:30 05:00 05:30 Temperature Pulse Rate 97 H 98 H 101 H Pulse Rate [ 97 H From Monitor] Respiratory 12 13 17 Rate Blood Pressure 110/58 102/63 103/58 O2 Sat by Pulse 98 97 97 Oximetry 01/26/17 01/26/17 01/26/17 06:00 06:30 07:00 Temperature 98.0 F Pulse Rate 100 H 95 H 90 Pulse Rate [ From Monitor] Respiratory 16 14 30 H Rate Blood Pressure 106/60 110/65 112/64 O2 Sat by Pulse 96 97 96 Oximetry 01/26/17 01/26/17 01/26/17 07:30 08:00 08:30 Temperature Pulse Rate 79 80 115 H Pulse Rate [ From Monitor] Respiratory 25 H 30 H 30 H Rate Blood Pressure 119/69 117/69 135/75 O2 Sat by Pulse 97 98 97 Oximetry 01/26/17 01/26/17 01/26/17 09:00 09:32 09:33 Temperature Pulse Rate 117 H 113 H 114 H Pulse Rate [ From Monitor] Respiratory 30 H Rate Blood Pressure 131/78 131/78 131/78 O2 Sat by Pulse 90 Oximetry 01/26/17 01/26/17 01/26/17 09:35 09:44 09:54 Temperature Pulse Rate 97 H 94 H Pulse Rate [ From Monitor] Respiratory 30 H 30 H Rate Blood Pressure 115/62 115/62 O2 Sat by Pulse 96 96 94 Oximetry CBC and BMP: 01/26/17 05:25 01/26/17 05:25 ABG, PT/INR, D-dimer: ABG POC ABG pH 7.193 (7.35-7.45) L 01/26/17 06:41 POC ABG pCO2 99.2 (35-45) H 01/26/17 06:41 POC ABG pO2 117 (80-105) H 01/26/17 06:41 POC ABG HCO3 38.2 01/26/17 06:41 POC ABG Total CO2 41 01/26/17 06:41 POC ABG O2 Sat 97 01/26/17 06:41 PT/INR, D-dimer PT 15.9 Sec. (12.2-14.9) H 01/26/17 05:25 INR 1.28 (0.87-1.13) H 01/26/17 05:25 D-Dimer 1566.79 ng/mlDDU (0-234) H 01/24/17 18:50 Abnormal lab findings: Abnormal Labs 01/24/17 01/25/17 01/25/17 21:54 03:33 03:33 RBC 6.88 H Hgb 18.5 H Hct 60.0 H* MCH 27 L RDW 19.4 H Plt Count 126 L Lymph % (Auto) 3.8 L [place] % (Auto) 13.2 H Lymph # 0.3 L [place] # 1.2 H Seg Neutrophils % 82.4 H PT INR POC ABG pH POC ABG pCO2 POC ABG pO2 Potassium Chloride Carbon Dioxide BUN Creatinine Glucose Total Bilirubin CK-MB (CK-2) 6.2 H 5.5 H CK-MB (CK-2) Rel Index 4.7 H 5.6 H Total Protein Albumin Crossmatch 01/25/17 01/25/17 01/25/17 03:33 08:33 21:38 RBC Hgb Hct MCH RDW Plt Count Lymph % (Auto) [place] % (Auto) Lymph # [place] # Seg Neutrophils % PT INR POC ABG pH 7.101 L POC ABG pCO2 116.4 H POC ABG pO2 71 L Potassium 5.7 H Chloride 94.1 L Carbon Dioxide BUN 28 H Creatinine Glucose 115 H Total Bilirubin CK-MB (CK-2) CK-MB (CK-2) Rel Index Total Protein Albumin Crossmatch See Detail 01/26/17 01/26/17 01/26/17 00:16 05:25 05:25 RBC 6.10 H Hgb 16.6 H Hct 55.8 H* MCH 27 L RDW 19.5 H Plt Count 77 L Lymph % (Auto) 4.1 L [place] % (Auto) 11.9 H Lymph # 0.3 L [place] # 1.0 H Seg Neutrophils % 83.5 H PT 15.9 H INR 1.28 H POC ABG pH 7.184 L POC ABG pCO2 99.2 H POC ABG pO2 153 H Potassium Chloride Carbon Dioxide BUN Creatinine Glucose Total Bilirubin CK-MB (CK-2) CK-MB (CK-2) Rel Index Total Protein Albumin Crossmatch 01/26/17 01/26/17 05:25 06:41 RBC Hgb Hct MCH RDW Plt Count Lymph % (Auto) [place] % (Auto) Lymph # [place] # Seg Neutrophils % PT INR POC ABG pH 7.193 L POC ABG pCO2 99.2 H POC ABG pO2 117 H Potassium Chloride 96.0 L Carbon Dioxide 34 H BUN 38 H Creatinine 1.6 H Glucose 111 H Total Bilirubin 1.70 H CK-MB (CK-2) CK-MB (CK-2) Rel Index Total Protein 5.6 L Albumin 3.1 L Crossmatch Chest x-ray: report reviewed (unable to view images )
[2017-01-26] MEDS ORDERED: NACL 0.9% 250ML 250 ML IV ONE ×2 (11:55→17:37)
[2017-01-26] MEDS ORDERED: FLUARIX QUAD 2016-2017(36 MOS+) IM ONE (12:00)
--- NOTE | 2017-01-26 13:31 | Progress Note ---
Assessment and Plan 66-year-old woman with no medical problems comes emergency room with complaints of lower extremity edema 1 month and not feeling well. She noted to have bilateral pleural effusion with pulmonary edema, ascites, acute hypoxic respiratory failure. She was admitted to telemetry then transferred to ICU for low oxygen saturation and close monitoring. Acute hypoxic respiratory failure - cont diuresis with IV Lasix, continue BiPAP PRN - Monitor I's and O's, daily weights - Continue scheduled breathing treatments Acute CHF exacerbation - 2-D echo result pending - Cardiology following - beta elizabeth, CONNIE inhibitor on hold for low BP Hyperkalemia - Status post Kayexalate, potassium level improved - Continue to monitor Thrombocytopenia - Likely reactive Polycythemia likely due to underlying sleep apnea - Monitor H&H Ascitis on abdominal CT - Status post paracentesis, removing 800 mL of ascitic fluid - Follow pending study DOUGLAS - Likely from diuresis - Continue to monitor renal function and consult nephrology Bilateral pleural effusion - Continue Lasix cautiously - We'll get repeat chest x-ray to further evaluate - Pulmonary following Dvt prophylaxis with heparin Subjective Date of service: 01/26/17 Interval history: Patient seen and examined. Medical records and medication list reviewed. She was transferred to ICU last night for low O2 sat Patient c/o difficulty breathing on rest. She is on BiPAP Discussed plan of care at bedside with patient and her daughter. Objective - Exam Narrative Exam: GENERAL: elderly obese female lying on bed appeared to be in moderate discomfort. appears very lathergic HEENT: Normocephalic. Atraumatic. No conjunctival congestion or icterus. Patient has dry mucous membranes. NECK: Supple. Trachea midline. CHEST/LUNGS: Crackles auscultated bilaterally, breathing nonlabored. on nasal mask with BiPAP HEART/CARDIOVASCULAR: Regular in rate and rhythm. S1 and S2 positive. ABDOMEN: Abdomen is soft, nontender. Patient has normal bowel sounds. SKIN: There is no rash. Warm and dry. NEURO: No focal motor deficit. Follows command. MUSCULOSKELETAL: No joint effusion or tenderness. EXTRIMITY: + edema, no cyanosis or clubbing. PSYCH: Cooperative. - Constitutional Vitals: Vital Signs - 12hr 01/26/17 01/26/17 01/26/17 02:00 02:30 03:00 Temperature Pulse Rate 93 H 92 H 90 Pulse Rate [ From Monitor] Respiratory 25 H 30 H 30 H Rate Respiratory Rate [Right Lower Leg] Blood Pressure 110/67 111/66 112/61 O2 Sat by Pulse 98 95 Oximetry 01/26/17 01/26/17 01/26/17 03:30 04:00 04:26 Temperature 97.5 F L Pulse Rate 99 H 98 H 104 H Pulse Rate [ From Monitor] Respiratory 16 17 30 H Rate Respiratory Rate [Right Lower Leg] Blood Pressure 99/63 100/57 100/57 O2 Sat by Pulse 90 90 95 Oximetry 01/26/17 01/26/17 01/26/17 04:30 05:00 05:30 Temperature Pulse Rate 97 H 98 H 101 H Pulse Rate [ 97 H From Monitor] Respiratory 12 13 17 Rate Respiratory Rate [Right Lower Leg] Blood Pressure 110/58 102/63 103/58 O2 Sat by Pulse 98 97 97 Oximetry 01/26/17 01/26/17 01/26/17 06:00 06:30 07:00 Temperature 98.0 F Pulse Rate 100 H 95 H 90 Pulse Rate [ From Monitor] Respiratory 16 14 30 H Rate Respiratory Rate [Right Lower Leg] Blood Pressure 106/60 110/65 112/64 O2 Sat by Pulse 96 97 96 Oximetry 01/26/17 01/26/17 01/26/17 07:30 08:00 08:30 Temperature Pulse Rate 79 80 115 H Pulse Rate [ 74 From Monitor] Respiratory 25 H 26 H 30 H Rate Respiratory Rate [Right Lower Leg] Blood Pressure 119/69 117/69 135/75 O2 Sat by Pulse 97 99 97 Oximetry 01/26/17 01/26/17 01/26/17 09:00 09:30 09:32 Temperature Pulse Rate 117 H 113 H 113 H Pulse Rate [ From Monitor] Respiratory 30 H 26 H Rate Respiratory Rate [Right Lower Leg] Blood Pressure 131/78 115/62 131/78 O2 Sat by Pulse 90 94 Oximetry 01/26/17 01/26/17 01/26/17 09:33 09:35 09:44 Temperature Pulse Rate 114 H 97 H 94 H Pulse Rate [ From Monitor] Respiratory 30 H 30 H Rate Respiratory Rate [Right Lower Leg] Blood Pressure 131/78 115/62 115/62 O2 Sat by Pulse 96 96 Oximetry 01/26/17 01/26/17 01/26/17 09:54 10:00 10:01 Temperature Pulse Rate 84 91 H Pulse Rate [ From Monitor] Respiratory 30 H Rate Respiratory 28 H Rate [Right Lower Leg] Blood Pressure 98/55 O2 Sat by Pulse 94 92 Oximetry 01/26/17 01/26/17 10:30 11:00 Temperature 98.2 F Pulse Rate 84 81 Pulse Rate [ From Monitor] Respiratory 30 H 30 H Rate Respiratory Rate [Right Lower Leg] Blood Pressure 86/43 76/43 O2 Sat by Pulse 93 95 Oximetry - Labs CBC & Chem 7: 01/26/17 05:25 01/26/17 05:25 Labs: Abnormal lab results 01/25/17 01/25/17 01/26/17 Range/Units 08:33 21:38 00:16 RBC (3.65-5.03) M/mm3 Hgb (10.1-14.3) gm/dl Hct (30.3-42.9) % MCH (28-32) pg RDW (13.2-15.2) % Plt Count (140-440) K/mm3 Lymph % (Auto) (13.4-35.0) % [place] % (Auto) (0.0-7.3) % Lymph # (1.2-5.4) K/mm3 [place] # (0.0-0.8) K/mm3 Seg Neutrophils % (40.0-70.0) % PT (12.2-14.9) Sec. INR (0.87-1.13) POC ABG pH 7.101 L 7.184 L (7.35-7.45) POC ABG pCO2 116.4 H 99.2 H (35-45) POC ABG pO2 71 L 153 H (80-105) Chloride (98-107) mmol/L Carbon Dioxide (22-30) mmol/L BUN (7-17) mg/dL Creatinine (0.7-1.2) mg/dL Glucose (65-100) mg/dL Total Bilirubin (0.1-1.2) mg/dL Total Protein (6.3-8.2) g/dL Albumin (3.9-5) g/dL Crossmatch See Detail 01/26/17 01/26/17 01/26/17 Range/Units 05:25 05:25 05:25 RBC 6.10 H (3.65-5.03) M/mm3 Hgb 16.6 H (10.1-14.3) gm/dl Hct 55.8 H* (30.3-42.9) % MCH 27 L (28-32) pg RDW 19.5 H (13.2-15.2) % Plt Count 77 L (140-440) K/mm3 Lymph % (Auto) 4.1 L (13.4-35.0) % [place] % (Auto) 11.9 H (0.0-7.3) % Lymph # 0.3 L (1.2-5.4) K/mm3 [place] # 1.0 H (0.0-0.8) K/mm3 Seg Neutrophils % 83.5 H (40.0-70.0) % PT 15.9 H (12.2-14.9) Sec. INR 1.28 H (0.87-1.13) POC ABG pH (7.35-7.45) POC ABG pCO2 (35-45) POC ABG pO2 (80-105) Chloride 96.0 L (98-107) mmol/L Carbon Dioxide 34 H (22-30) mmol/L BUN 38 H (7-17) mg/dL Creatinine 1.6 H (0.7-1.2) mg/dL Glucose 111 H (65-100) mg/dL Total Bilirubin 1.70 H (0.1-1.2) mg/dL Total Protein 5.6 L (6.3-8.2) g/dL Albumin 3.1 L (3.9-5) g/dL Crossmatch 01/26/17 Range/Units 06:41 RBC (3.65-5.03) M/mm3 Hgb (10.1-14.3) gm/dl Hct (30.3-42.9) % MCH (28-32) pg RDW (13.2-15.2) % Plt Count (140-440) K/mm3 Lymph % (Auto) (13.4-35.0) % [place] % (Auto) (0.0-7.3) % Lymph # (1.2-5.4) K/mm3 [place] # (0.0-0.8) K/mm3 Seg Neutrophils % (40.0-70.0) % PT (12.2-14.9) Sec. INR (0.87-1.13) POC ABG pH 7.193 L (7.35-7.45) POC ABG pCO2 99.2 H (35-45) POC ABG pO2 117 H (80-105) Chloride (98-107) mmol/L Carbon Dioxide (22-30) mmol/L BUN (7-17) mg/dL Creatinine (0.7-1.2) mg/dL Glucose (65-100) mg/dL Total Bilirubin (0.1-1.2) mg/dL Total Protein (6.3-8.2) g/dL Albumin (3.9-5) g/dL Crossmatch
[2017-01-26] MEDS: DUONEB 0.5 MG-3 MG/3 ML SOLN IH SCH ×2 (14:27→20:25)
--- NOTE | 2017-01-26 15:22 | Progress Note ---
Assessment and Plan Acute respiratory failure Acute pulmonary edema Ascities s/p paracentesis Anemia Thrombocytopenia Recommendations: Hold metoprolol and lisinopril due to low BP. Echocardiogram for LVEF assessment. Further cardiac evaluation of CHF depends on clinical course. Subjective Date of service: 01/26/17 Interval history: Patient currently on bipap therapy. Noted systolic BP of 77 after she was given IV lasix, lisinopril and metoprolol. Objective Vital Signs Temp Pulse Pulse Pulse Pulse Resp Resp 01/26/17 14:35 83 30 H 01/26/17 14:23 84 84 30 H 30 H 01/26/17 11:00 98.2 F 81 30 H 01/26/17 10:30 84 30 H 01/26/17 10:01 91 H 30 H 01/26/17 10:00 84 01/26/17 09:54 01/26/17 09:44 94 H 30 H 01/26/17 09:35 97 H 30 H 01/26/17 09:33 114 H 01/26/17 09:32 113 H 01/26/17 09:30 113 H 26 H 01/26/17 09:00 117 H 30 H 01/26/17 08:30 115 H 30 H 01/26/17 08:00 80 74 26 H 01/26/17 07:30 79 25 H 01/26/17 07:00 98.0 F 90 30 H 01/26/17 06:30 95 H 14 01/26/17 06:00 100 H 16 01/26/17 05:30 101 H 17 01/26/17 05:00 98 H 13 01/26/17 04:30 97 H 97 H 12 01/26/17 04:26 104 H 30 H 01/26/17 04:00 97.5 F L 98 H 17 01/26/17 03:30 99 H 16 01/26/17 03:00 90 30 H 01/26/17 02:30 92 H 30 H 01/26/17 02:00 93 H 25 H 01/26/17 01:30 96 H 30 H 01/26/17 01:00 96 H 30 H 01/26/17 00:30 97 H 28 H 01/26/17 00:01 97 H 13 01/25/17 23:30 92 H 30 H 01/25/17 23:18 01/25/17 23:00 85 20 05/07/17 22:30 93 H 25 H 01/25/17 22:27 90 01/25/17 22:20 96.8 F L 93 H 30 H 01/25/17 22:08 30 H 01/25/17 19:40 90 30 H 01/25/17 19:34 98 H 01/25/17 18:52 Resp BP BP Pulse Ox 01/26/17 14:35 01/26/17 14:23 77/45 95 01/26/17 11:00 76/43 95 01/26/17 10:30 86/43 93 01/26/17 10:01 98/55 92 01/26/17 10:00 28 H 01/26/17 09:54 94 01/26/17 09:44 115/62 96 01/26/17 09:35 115/62 96 01/26/17 09:33 131/78 01/26/17 09:32 131/78 01/26/17 09:30 115/62 94 01/26/17 09:00 131/78 90 01/26/17 08:30 135/75 97 01/26/17 08:00 117/69 99 01/26/17 07:30 119/69 97 01/26/17 07:00 112/64 96 01/26/17 06:30 110/65 97 01/26/17 06:00 106/60 96 01/26/17 05:30 103/58 97 01/26/17 05:00 102/63 97 01/26/17 04:30 110/58 98 01/26/17 04:26 100/57 95 01/26/17 04:00 100/57 90 01/26/17 03:30 99/63 90 01/26/17 03:00 112/61 95 01/26/17 02:30 111/66 98 01/26/17 02:00 110/67 01/26/17 01:30 112/69 01/26/17 01:00 109/69 01/26/17 00:30 106/70 01/26/17 00:01 109/66 92 01/25/17 23:30 118/74 97 01/25/17 23:18 96 01/25/17 23:00 108/71 97 01/25/17 22:30 121/81 97 01/25/17 22:27 98/60 01/25/17 22:20 01/25/17 22:08 01/25/17 19:40 30 H 93 01/25/17 19:34 01/25/17 18:52 117/74 - Physical Examination General: No Apparent Distress Cardiac: Positive: Reg Rate and Rhythm - Labs and Meds Cardiac Enzymes 01/26/17 Range/Units 05:25 AST 34 (5-40) units/L Coagulation 01/26/17 Range/Units 05:25 PT 15.9 H (12.2-14.9) Sec. INR 1.28 H (0.87-1.13) CBC 01/26/17 Range/Units 05:25 WBC 8.5 (4.5-11.0) K/mm3 RBC 6.10 H (3.65-5.03) M/mm3 Hgb 16.6 H (10.1-14.3) gm/dl Hct 55.8 H* (30.3-42.9) % Plt Count 77 L (140-440) K/mm3 Lymph # 0.3 L (1.2-5.4) K/mm3 [place] # 1.0 H (0.0-0.8) K/mm3 Eos # 0.0 (0.0-0.4) K/mm3 Baso # 0.0 (0.0-0.1) K/mm3 Comprehensive Metabolic Panel 01/26/17 Range/Units 05:25 Sodium 141 (137-145) mmol/L Potassium 4.9 (3.6-5.0) mmol/L Chloride 96.0 L (98-107) mmol/L Carbon Dioxide 34 H (22-30) mmol/L BUN 38 H (7-17) mg/dL Creatinine 1.6 H (0.7-1.2) mg/dL Glucose 111 H (65-100) mg/dL Calcium 8.5 (8.4-10.2) mg/dL AST 34 (5-40) units/L ALT 38 (7-56) units/L Alkaline Phosphatase 75 (35-129) units/L Total Protein 5.6 L (6.3-8.2) g/dL Albumin 3.1 L (3.9-5) g/dL - Imaging and Cardiology EKG: image reviewed
--- NOTE | 2017-01-26 17:20 | Consultation ---
History of Present Illness - Reason for Consult Consult date: 01/26/17 acute renal failure, chronic renal failure, hyperkalemia - History of Present Illness Patient is a 66-year-old WF with medical history significant for Obesity and Tobacco smoking came to the Emergency room with complaints of lower extremity swelling and shortness of breath. Patient has had the symptoms for the past few weeks and it is gradually gotten worse. Patient hasn't seen a physician in several years. Her daughter is at the bedside. She was found to have Acute hypoxic and hypercapnic respiratory failure, Acute CHF exacerbation, Acute kidney Injury, Hyperkalemia, Thrombocytopenia, Severe Anemia and Ascites. Potassium level has improved. Creatinine increased to 1.6 today. She was transferred to ICU due to hypotension. Medications and Allergies Allergies Allergy/AdvReac Type Severity Reaction Status Date / Time phenobarbital Allergy Anaphylaxis Verified 01/24/17 18:23 Home Medications Medication Instructions Recorded Confirmed Last Taken Type Ipratropium/Albuterol Sulfate 1 ampul IH Q6HRT ampul.neb 01/27/17 Unknown Rx [Duoneb 0.5 mg-3 mg/3 ml Soln] Midodrine [Proamatine] 10 mg PO TID tablet 01/27/17 Unknown Rx acetaZOLAMIDE [Diamox INJ] 500 mg IV DAILY vial 01/27/17 Unknown Rx oxyCODONE /ACETAMINOPHEN [Percocet 1 tab PO Q6H PRN #1 tablet 01/27/17 Unknown Rx 5/325 mg] Active Meds: Active Medications Acetaminophen (Tylenol) 650 mg PO Q4H PRN PRN Reason: Pain MILD(1-3)/Fever >100.5/MADRID Albuterol/Ipratropium (Duoneb 0.5 Mg-3 Mg/3 Ml Soln) 1 ampul IH Q6HRT [facility] Last Admin: 01/26/17 14:27 Dose: 1 ampul Bisacodyl (Dulcolax) 10 mg SC QDAY PRN PRN Reason: Constipation unrelieved by MOM Furosemide (Lasix) 20 mg IV BID@0600,1800 [facility] Last Admin: 01/26/17 05:42 Dose: 20 mg Magnesium Hydroxide (Milk Of Magnesia) 30 ml PO Q4H PRN PRN Reason: Constipation Ondansetron HCl (Zofran) 4 mg IV Q4H PRN PRN Reason: N/V unrelieved by Reglan Oxycodone/Acetaminophen (Percocet 5/325) 1 tab PO Q6H PRN PRN Reason: Pain, Moderate (4-6) Review of Systems Constitutional: fatigue, malaise, no weight loss, no weight gain, no fever, no chills, no anorexia, no weakness Ears, nose, mouth and throat: no epistaxis Breasts: deferred Cardiovascular: orthopnea, edema, shortness of breath, dyspnea on exertion, leg edema, no chest pain, no syncope Respiratory: shortness of breath, dyspnea on exertion, no cough, no hemoptysis Gastrointestinal: no abdominal pain, no nausea, no vomiting, no melena Genitourinary Female: no hematuria Rectal: no bleeding Integumentary: no rash Neurological: no head injury, no paralysis, no syncope Hematologic/Lymphatic: no easy bleeding Exam - Vital Signs Vital signs: Vital Signs Temp Pulse Resp BP Pulse Ox 98.2 F 122 H 16 136/86 98 01/24/17 17:59 01/24/17 17:59 01/24/17 17:59 01/24/17 17:59 01/24/17 17:59 - General Appearance General appearance: well-developed, well-nourished, appears stated age, obese, other (nild distress due to SOB) EENT: ATNC, mucous membranes moist, hearing intact, vision intact Neck: Present: neck supple Respiratory: Ronchi Heart: regular, S1S2, no murmurs Gastrointestinal: Present: normoactive bowel sounds, distended, obese. Absent: tenderness Integumentary: no rash Neurologic: no focal deficit, no asterixis, alert and oriented x3 Musculoskeletal: Present: other (bilateral LE edema noted) Psychiatric: cooperative Results - Lab Results 01/27/17 03:57 01/27/17 03:57 Most recent lab results Calcium 8.5 mg/dL (8.4-10.2) 01/26/17 05:25 Assessment and Plan - Patient Problems (1) DOUGLAS (acute kidney injury) Current Visit: Yes Status: Acute Plan to address problem: Acute Kidney Injury most likely hemodynamically mediated in the setting of hypotension and CHF exacerbation. BP meds were stopped. Monitor renal function. (2) Hyperkalemia Current Visit: Yes Status: Acute Plan to address problem: Improved. (3) Acute hypercapnic respiratory failure Current Visit: Yes Status: Acute Plan to address problem: BIPAP. (4) Acute hypoxemic respiratory failure Current Visit: Yes Status: Acute (5) Hypotension Current Visit: Yes Status: Acute Qualifiers: Hypotension type: H Trimester: T (6) Ascites Current Visit: Yes Status: Acute Qualifiers: Ascites type: A Plan to address problem: S/p paracentesis.
--- NOTE | 2017-01-26 17:53 | Consultation ---
CONSULTING PHYSICIAN: Dr. Rogers. REASON FOR CONSULTATION: Respiratory distress. CHIEF COMPLAINT AND HISTORY OF PRESENT ILLNESS: The patient is a 66-year-old female with past medical history I guess significant in this context for a diagnosis of obesity. She is unable to give me a history. She came in to the Emergency Room yesterday, brought in by emergency medical services complaining of shortness of breath, weakness, abdominal distention, and lower extremity swelling. She was evaluated in the Emergency Room, amongst other things. She was started on BiPAP therapy secondary to hypercapnia and hypoxemia and reportedly was at a point. Initially deemed to be an ICU admit, however, she improved, presumably on BiPAP and was sent up to the medical floor. I am told that earlier today she was on a Ventimask, but she became less responsive and was placed on BiPAP, when I stood by to see her, she was definitely quite evident the ____ with CO2 narcosis. She was difficult to arouse. She was right in the BiPAP machine. She was not taking any deep breaths and that really is as much of the history of this presentation. I do not have any history of emesis or overt aspiration. I do not know of any fevers or chills prior to coming to the Emergency Room. This is much of the history of presentation as I have. PAST MEDICAL HISTORY: Obesity really apparently no diagnosis, otherwise the lower extremity swelling reportedly had been going on for a month. PAST SURGICAL HISTORY: Unknown. MEDICATIONS: She was on at the time I stopped by to see her, according to the medication administration record included the following: Tylenol 650 mg p.o. q.4 hours p.r.n. mild pain, Lasix 20 mg IV b.i.d., lisinopril 2.5 mg p.o. daily, Lopressor 12.5 mg p.o. b.i.d., Zofran 4 mg IV q.4 hours p.r.n. nausea and vomiting, Percocet one tablet p.o. q.6 hours p.r.n. moderate pain and p.r.n. milk of magnesia. She apparently received some Kayexalate earlier in the day. ALLERGIES: To PHENOBARBITAL, nature of this allergy is unknown. DIET: Morbidly obese lady, acute weight loss or gain history is unknown. FAMILY AND SOCIAL HISTORY: Apparently lives in the community. She reportedly her daughter was in the Emergency Room yesterday. Alcohol, tobacco, or illicit drug use or abuse history is unknown, nor is any other family history. REVIEW OF SYSTEMS: Unobtainable secondary to the patient's medical and mental condition since she has been here, no gross hematochezia or melena, no gross hematuria, no hematemesis, no hemoptysis. No seizures. PHYSICAL EXAMINATION: VITAL SIGNS: At presentation vital signs shows that she was afebrile, temperature 98.2, pulse was 122, respiratory rate 16, blood pressure 136/86, oxygen sats were 98%, inspired oxygen concentration was not recorded. HEAD, EYES, EARS, NOSE AND THROAT: Pupils are equal, round, about 2-3 mm, very sluggishly reactive to light. Extraocular muscle movements could not be assessed. She has a BiPAP mask over her face was still is hypoventilating. I am unable to examine her oropharynx. NECK: Grossly, there were no palpable lymph nodes in the supraclavicular or submandibular lymph node chains. LUNGS: Auscultation of both lung [place] are clear. Diminished bilateral breath sounds, prolonged expiratory phase. HEART: Sounds 1 and 2 are heard, regular rate and rhythm at time of my evaluation. ABDOMEN: Soft, full, bowel sounds positive. Did not appear tender. EXTREMITIES: With about 2+ right pedal pitting edema, no significant digital clubbing or cyanosis. NEUROLOGIC: She had spontaneous movement to all extremities, but she was lethargic. LABORATORY DATA: From my review are as follows: White cell count 7000, hemoglobin 18.8, hematocrit 61.3, platelet count 146. INR 1.32, D-dimer was elevated at 1566. Arterial blood gas at presentation showed a pH of 7.33, pCO2 of 74, pO2 of 36 that was on room air. Serum sodium was 140, potassium 5.5, chloride 95, bicarbonate 35, BUN 26, creatinine 1.1, glucose was 128. Total bilirubin was up at 1.9, AST 69. BNP 9742. Arterial blood gas now showed a pH of 7.10, pCO2 of 116, pO2 of 71 that is on 75% FiO2. BiPAP, I believe was 16/8 rate of 20. MICROBIOLOGY STUDIES: She has had a paracentesis done, ascetic fluid and no growth to date. Radiographic studies were done. I am attempting to review the images. Chest x-ray there is cardiomegaly, increased interstitial markings suggest an element of interstitial edema, right enlarged main pulmonary trunk suggests possible pulmonary hypertension, I cannot rule out small bilateral pleural effusions, no gross pneumothorax, no gross bony fracture. A CT angio was also done of her chest. I am unable to pull up the radiologist's interpretation. No dissection, no pulmonary emboli, basilar atelectasis and bilateral pleural effusions what is mentioned, I will attempt to review the film. A CT of the abdomen and pelvis was also done this for a contrast CT, no liver mass, diverticula of the colon, and large amount of ascites, no free air. ASSESSMENT AND PLAN: We have an elderly lady in with certain and acute hypoxemic hypercapnic respiratory failure. She may not have been diagnosed, but almost certainly had some chronic respiratory issues. From a respiratory standpoint, we will first of all move her to the Intensive Care Unit. I have adjusted the BiPAP settings and asked the nursing staff to continue to stimulate her to try and get her to improve her minute ventilation. BiPAP was changed to 25/5 with backup rate of 25 and she is pulling larger tidal volumes minute ventilation has gone from about 3 liters per minute to 10 liters per minute. We need to avoid sedatives. Oxygen will be titrated to keep sats greater than or equal to about 92%. We should continue diuresis. Bronchodilator treatments will be scheduled now both short and long acting bronchodilators. I will hold on systemic all inhaled corticosteroid therapy at this point. Cardiovascular andrade blood pressure is holding will follow her clinically. From a GI and nutritional standpoint, perhaps when she can be fed orally, otherwise she should remain n.p.o. until mental status improves. Diuresis should continue from a renal standpoint. Gentle diuresis. I note, her serum potassium level was 5.7. She did receive some Kayexalate. From an infectious disease standpoint, I will put her on empiric Levaquin monotherapy for likely COPD, I will get a CRP level. We will get a lactic acid level and trend as necessary. From a [employer] standpoint, the exam was grossly nonfocal. No acute indication for neuro imaging. Certainly if mental status has improved, that will change from a general and hospital healthcare maintenance standpoint, I am going to put her on GI prophylaxis as well as DVT prophylaxis. Flu and pneumonia vaccination should be per protocol. I will not end the venous thromboembolic disorder workup. At this point bilateral lower extremity Dopplers will be ordered. Thank you very much for the consult. We will follow along with further recommendations as picture progresses/becomes clearer. At this point, she is critically ill on life-sustaining interventions including continuous noninvasive ventilation at high risk for further deterioration including . I have spent about 30 to 35 minutes of critical care time without overlap and excluding any procedural time that may be necessary. JOB# [id number] MESSI/QUE
[2017-01-26] MEDS ORDERED: ALBURX 25% (ALBUMIN) IV ONE (18:10)
[2017-01-26] MEDS: PROAMATINE PO SCH ×2 (19:17→22:09)
[2017-01-27] MEDS: DUONEB 0.5 MG-3 MG/3 ML SOLN IH SCH ×4 (02:10→19:50)
[2017-01-27] MEDS: PROAMATINE PO SCH ×4 (02:12→22:27)
[2017-01-27 04:35] LABS: Basophils % (Auto) 0.2 % (0.0-1.8); Eosinophils % (Auto) 0.1 % (0.0-4.3); Mean Corpuscular HGB Conc 30 % (30-34); Mean Corpuscular Hemoglobin 27 pg (28-32); Mean Corpuscular Volume 90 fl (79-97); Red Cell Distribution Width 19.9 % (13.2-15.2); White Blood Count 7.4 K/mm3 (4.5-11.0)
[2017-01-27 04:36] LABS: Hematocrit 53.7 % (30.3-42.9); Hemoglobin 16.2 gm/dl (10.1-14.3); Platelet Count 79 K/mm3 (140-440)
[2017-01-27 04:57] LABS: BUN/Creatinine Ratio 24.73; Calcium 8.2 mg/dL (8.4-10.2); Chloride 93.8 mmol/L (98-107); Potassium 4.8 mmol/L (3.6-5.0)
[2017-01-27 05:13] LABS: ISTAT Base Excess 11; ISTAT HCO3 38.9; ISTAT PCO2 96.9 (35-45); ISTAT PH 7.211 (7.35-7.45); ISTAT PO2 83 (80-105); ISTAT SO2 92; ISTAT TCO2 42
[2017-01-27] MEDS ORDERED: NACL 0.9% 250ML 250 ML IV ONE ×2 (05:44→11:30)
--- NOTE | 2017-01-27 06:40 | Progress Note ---
Assessment and Plan - Patient Problems (1) DOUGLAS (acute kidney injury) Current Visit: Yes Status: Acute Plan to address problem: Acute Kidney Injury most likely hemodynamically mediated in the setting of hypotension and CHF exacerbation. Creatinine continue to increase. Monitor renal function. (2) Hyperkalemia Current Visit: Yes Status: Acute Plan to address problem: Improved. (3) Hypotension Current Visit: Yes Status: Acute Qualifiers: Hypotension type: H Trimester: T Plan to address problem: Improving. (4) Acute hypercapnic respiratory failure Current Visit: Yes Status: Acute Plan to address problem: BIPAP. (5) Acute hypoxemic respiratory failure Current Visit: Yes Status: Acute (6) Cor pulmonale Current Visit: Yes Status: Chronic Subjective Date of service: 01/27/17 Principal diagnosis: acute hypoxemic hypercapnic respiratory failure Interval history: Patient is on BIPAP. Objective - Vital Signs Vital signs: Vital Signs - 12hr 01/26/17 01/26/17 01/26/17 19:00 19:30 20:00 Temperature 98.3 F Pulse Rate 100 H 104 H 110 H Pulse Rate [ Anterior Bilateral Throughout] Pulse Rate [ From Monitor] Respiratory 18 17 16 Rate Respiratory Rate [Anterior Bilateral Throughout] Blood Pressure 81/49 85/51 82/52 O2 Sat by Pulse 92 85 87 Oximetry 01/26/17 01/26/17 01/26/17 20:26 20:28 20:29 Temperature Pulse Rate 103 H Pulse Rate [ 102 H Anterior Bilateral Throughout] Pulse Rate [ From Monitor] Respiratory 30 H Rate Respiratory 30 H Rate [Anterior Bilateral Throughout] Blood Pressure 82/52 O2 Sat by Pulse 90 86 Oximetry 01/26/17 01/26/17 01/26/17 20:30 20:40 21:00 Temperature Pulse Rate 104 H 103 H Pulse Rate [ 102 H Anterior Bilateral Throughout] Pulse Rate [ From Monitor] Respiratory 26 H 22 Rate Respiratory 30 H Rate [Anterior Bilateral Throughout] Blood Pressure 81/48 97/63 O2 Sat by Pulse 88 88 Oximetry 01/26/17 01/26/17 01/26/17 21:30 22:00 22:30 Temperature Pulse Rate 103 H 100 H 101 H Pulse Rate [ Anterior Bilateral Throughout] Pulse Rate [ From Monitor] Respiratory 18 30 H 20 Rate Respiratory Rate [Anterior Bilateral Throughout] Blood Pressure 95/61 93/62 96/59 O2 Sat by Pulse 88 97 Oximetry 01/26/17 01/26/17 01/27/17 23:00 23:30 00:00 Temperature 97.4 F L Pulse Rate 101 H 100 H 98 H Pulse Rate [ Anterior Bilateral Throughout] Pulse Rate [ From Monitor] Respiratory 23 17 18 Rate Respiratory Rate [Anterior Bilateral Throughout] Blood Pressure 100/58 92/54 87/54 O2 Sat by Pulse 88 89 Oximetry 01/27/17 01/27/17 01/27/17 00:17 00:20 00:30 Temperature Pulse Rate 97 H 97 H Pulse Rate [ Anterior Bilateral Throughout] Pulse Rate [ 97 H From Monitor] Respiratory 30 H 30 H 20 Rate Respiratory Rate [Anterior Bilateral Throughout] Blood Pressure 87/54 87/54 O2 Sat by Pulse 94 89 92 Oximetry 01/27/17 01/27/17 01/27/17 01:00 01:30 02:00 Temperature Pulse Rate 99 H 100 H 97 H Pulse Rate [ Anterior Bilateral Throughout] Pulse Rate [ From Monitor] Respiratory 24 17 27 H Rate Respiratory Rate [Anterior Bilateral Throughout] Blood Pressure 95/58 94/57 83/52 O2 Sat by Pulse 90 92 88 Oximetry 01/27/17 01/27/17 01/27/17 02:09 02:24 02:30 Temperature Pulse Rate 97 H Pulse Rate [ 99 H 98 H Anterior Bilateral Throughout] Pulse Rate [ From Monitor] Respiratory 18 Rate Respiratory 30 H 30 H Rate [Anterior Bilateral Throughout] Blood Pressure 92/54 O2 Sat by Pulse 91 Oximetry 01/27/17 01/27/17 01/27/17 03:00 03:30 04:00 Temperature Pulse Rate 95 H 95 H 148 H Pulse Rate [ Anterior Bilateral Throughout] Pulse Rate [ From Monitor] Respiratory 23 14 18 Rate Respiratory Rate [Anterior Bilateral Throughout] Blood Pressure 85/49 84/54 83/53 O2 Sat by Pulse 89 91 92 Oximetry 01/27/17 01/27/17 01/27/17 04:30 04:43 05:21 Temperature 97.6 F Pulse Rate 93 H 85 Pulse Rate [ Anterior Bilateral Throughout] Pulse Rate [ From Monitor] Respiratory 20 20 30 H Rate Respiratory Rate [Anterior Bilateral Throughout] Blood Pressure 92/56 92/56 95/56 O2 Sat by Pulse 92 92 94 Oximetry - General Appearance General appearance: well-developed, well-nourished, other (on BIPAP and difficult to arouse.) EENT: ATNC Neck: supple Respiratory: Present: Ronchi Cardiology: regular, S1S2, no murmurs Gastrointestinal: normoactive bowel sounds, no tenderness, no distended, obese Integumentary: no rash Neurologic: other (barely arousable) Musculoskeletal: other (bilateral LA edema noted) - Lab 01/27/17 03:57 01/27/17 03:57 Most recent lab results Calcium 8.2 mg/dL (8.4-10.2) L 01/27/17 03:57
--- NOTE | 2017-01-27 08:30 | XRay Report ---
AP chest x-ray. History: Shortness of breath. Findings: Since the previous study on January 24, there is been no interval change in the mild CHF pattern. Bilateral pleural effusions and basilar infiltrates are present.
--- NOTE | 2017-01-27 08:36 | Progress Note ---
Assessment and Plan Assessment and plan: 66-year-old woman with no medical problems comes emergency room with complaints of lower extremity edema 1 month and not feeling well. She noted to have bilateral pleural effusion with pulmonary edema, ascites, acute hypoxic respiratory failure. She was admitted to telemetry then transferred to ICU for low oxygen saturation and close monitoring. She suspected of having chronic obstructive sleep apnea, chronic obesity hypoventilation, chronic hypoxia. She presented with worsening shortness of breath 3 months. Her daughter states that she most likely had symptoms like this for over 20 years but had only gotten very adamant last few months. She was treated for acute hypoxic respiratory failure, acute exacerbation of diastolic CHF, she received BiPAP in the ICU, received IV diuresis, she was noted to have ascites for which he had therapeutic paracentesis and fluid analysis was consistent with transudative fluid. She also suffered acute kidney injury which is most likely due to vasomotor nephropathy, she has been followed by nephrology. Echocardiogram showed severe pulmonary hypertension which is most likely etiology of Acute hypoxic respiratory failure. She is being transferred to [place] to their pulmonary hypertension program for further treatment that she needs higher level of daily can offer at this hospital. 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 HTN - Cardiology following - beta elizabeth, CONNIE inhibitor on hold for low BP, continue dig and midodrine Hyperkalemia - Status post Kayexalate, potassium level improved - Continue to monitor Thrombocytopenia - Likely reactive Polycythemia likely due to underlying sleep apnea - Monitor H&H Ascitis on abdominal CT - Status post paracentesis, removing 800 mL of ascitic fluid -2/2 CHF DOUGLAS - Likely from diuresis - Continue to monitor renal function and consult nephrology Bilateral pleural effusion - Continue IV diuretic cautiously - due to CHF Critical Care time: 32 minutes Plan discussed with patient and her daughter History Interval history: Continues to have shortness of breath, has been dependent on BiPAP all day, denies cough, daughter states that she has been having apneic periods when sleeping for years. Hospitalist Physical - Physical exam Narrative exam: General: Moderate respiratory distress HEENT: MMM, EOMI, poor dentition cardiac: S1-S2 heard lungs: Decreased air entry bibasilar crackles abdomen: soft, nontender, nondistended bowel sounds positive extremities: 1+ bipedal edema Skin: no rash or lesion Neuro: no focal deficit Psych: appropriate behavior and mood, cognition intact - Constitutional Vitals: Temp Pulse Resp BP Pulse Ox 97.4 F L 91 H 30 H 92/57 93 01/27/17 08:00 01/27/17 08:21 01/27/17 08:21 01/27/17 08:17 01/27/17 08:17 Results - Labs CBC & Chem 7: 01/27/17 03:57 01/27/17 03:57 Labs: Laboratory Last Values WBC 7.4 K/mm3 (4.5-11.0) 01/27/17 03:57 RBC 6.00 M/mm3 (3.65-5.03) H 01/27/17 03:57 Hgb 16.2 gm/dl (10.1-14.3) H 01/27/17 03:57 Hct 53.7 % (30.3-42.9) H 01/27/17 03:57 MCV 90 fl (79-97) 01/27/17 03:57 MCH 27 pg (28-32) L 01/27/17 03:57 MCHC 30 % (30-34) 01/27/17 03:57 RDW 19.9 % (13.2-15.2) H 01/27/17 03:57 Plt Count 79 K/mm3 (140-440) L 01/27/17 03:57 Lymph % (Auto) 5.3 % (13.4-35.0) L 01/27/17 03:57 [place] % (Auto) 14.4 % (0.0-7.3) H 01/27/17 03:57 Eos % (Auto) 0.1 % (0.0-4.3) 01/27/17 03:57 Baso % (Auto) 0.2 % (0.0-1.8) 01/27/17 03:57 Lymph # 0.4 K/mm3 (1.2-5.4) L 01/27/17 03:57 [place] # 1.1 K/mm3 (0.0-0.8) H 01/27/17 03:57 Eos # 0.0 K/mm3 (0.0-0.4) 01/27/17 03:57 Baso # 0.0 K/mm3 (0.0-0.1) 01/27/17 03:57 Add Manual Diff TNR 01/24/17 18:50 Seg Neutrophils % 80.0 % (40.0-70.0) H 01/27/17 03:57 Seg Neutrophils # 5.9 K/mm3 (1.8-7.7) 01/27/17 03:57 PT 15.9 Sec. (12.2-14.9) H 01/26/17 05:25 INR 1.28 (0.87-1.13) H 01/26/17 05:25 APTT 26.4 Sec. (24.2-36.6) 01/24/17 19:27 D-Dimer 1566.79 ng/mlDDU (0-234) H 01/24/17 18:50 POC ABG pH 7.211 (7.35-7.45) L 01/27/17 05:05 POC ABG pCO2 96.9 (35-45) H 01/27/17 05:05 POC ABG pO2 83 (80-105) 01/27/17 05:05 POC ABG HCO3 38.9 01/27/17 05:05 POC ABG Total CO2 42 01/27/17 05:05 POC ABG O2 Sat 92 01/27/17 05:05 POC ABG Base Excess 11 01/27/17 05:05 FiO2 50 % 01/27/17 05:05 Sodium 136 mmol/L (137-145) L 01/27/17 03:57 Potassium 4.8 mmol/L (3.6-5.0) 01/27/17 03:57 Chloride 93.8 mmol/L (98-107) L 01/27/17 03:57 Carbon Dioxide 29 mmol/L (22-30) 01/27/17 03:57 Anion Gap 18 mmol/L 01/27/17 03:57 BUN 47 mg/dL (7-17) H 01/27/17 03:57 Creatinine 1.9 mg/dL (0.7-1.2) H 01/27/17 03:57 Estimated GFR 27 ml/min 01/27/17 03:57 BUN/Creatinine Ratio 24.73 % 01/27/17 03:57 Glucose 113 mg/dL (65-100) H 01/27/17 03:57 Calcium 8.2 mg/dL (8.4-10.2) L 01/27/17 03:57 Iron 43 ug/dL (37-170) 01/26/17 00:37 TIBC 308.00 mcg/dL (250-450) 01/26/17 00:37 Transferrin 220 mg/dl (192-382) 01/26/17 00:37 Ferritin 49.0 ng/mL (13.0-400.0) 01/26/17 00:37 Total Bilirubin 1.70 mg/dL (0.1-1.2) H 01/26/17 05:25 AST 34 units/L (5-40) 01/26/17 05:25 ALT 38 units/L (7-56) 01/26/17 05:25 Alkaline Phosphatase 75 units/L (35-129) 01/26/17 05:25 Total Creatine Kinase 97 units/L (30-135) 01/25/17 03:33 CK-MB (CK-2) 5.5 ng/mL (0.0-4.0) H 01/25/17 03:33 CK-MB (CK-2) Rel Index 5.6 (0-4) H 01/25/17 03:33 Troponin T 0.014 ng/mL (0.00-0.029) 01/25/17 03:33 NT-Pro-B Natriuret Pep 9742 pg/mL (0-900) H 01/24/17 18:50 Total Protein 5.6 g/dL (6.3-8.2) L 01/26/17 05:25 Albumin 3.1 g/dL (3.9-5) L 01/26/17 05:25 Albumin/Globulin Ratio 1.2 % 01/26/17 05:25 Fluid Type Ascitic 01/25/17 09:49 Fluid Color Yellow 01/25/17 09:49 Fluid Appearance Hazy 01/25/17 09:49 Fluid WBC 50 /mm3 01/25/17 09:49 Fluid RBC 358 /mm3 01/25/17 09:49 Fluid Seg Neutrophils 30.0 % 01/25/17 09:49 Fluid Lymphocytes 51.0 % 01/25/17 09:49 Fluid Reactive Lymphs 0 % 01/25/17 09:49 Fluid Monocytes 19.0 % 01/25/17 09:49 Fluid Eosinophils 0 % 01/25/17 09:49 Fluid Basophils 0 % 01/25/17 09:49 Blood Type O POSITIVE 01/25/17 08:33 Antibody Screen TNR 01/25/17 08:33 OUSMANE Antibody Screen Negative 01/25/17 08:33 Crossmatch See Detail 01/25/17 08:33
[2017-01-27] MEDS: DIAMOX IV SCH (09:54)
--- NOTE | 2017-01-27 10:04 | Progress Note ---
Assessment and Plan - Patient Problems (1) Acute hypoxemic respiratory failure Current Visit: Yes Status: Acute Plan to address problem: Restrict supplemental oxygen in view of hypercapnic respiratory failure. Get new facemask, adjust minute ventilation Get serial ABGs to monitor response to therapy (2) Acute hypercapnic respiratory failure Current Visit: Yes Status: Acute Plan to address problem: Improving slowly. Continues to have respiratory acidosis. Continue with NIPPV, will adjust IPAP/EPAP. (3) Morbid obesity due to excess calories Current Visit: Yes Status: Acute Plan to address problem: Life style modifications Weight loss Will need formal PSG as an outpatient. (4) Pleural effusion, bilateral Current Visit: Yes Status: Acute Plan to address problem: Currently getting diuresis. Serial CXR (5) Erythrocytosis Current Visit: Yes Status: Acute Plan to address problem: Probably secondary to chronic untreated hypoxia. Monitor for now, may need phlebotomy (6) COPD (chronic obstructive pulmonary disease) with acute bronchitis Current Visit: Yes Status: Acute Plan to address problem: Continue with bronchodilators Continue with antibiotics VTE prophylaxis (7) Hypotension Current Visit: Yes Status: Acute Qualifiers: Hypotension type: H Trimester: T Plan to address problem: Probably secondary to medications. Volume resuscitation-titrate to blood pressure response Monitor hemodynamics closely Subjective Date of service: 01/27/17 Principal diagnosis: acute hypoxemic hypercapnic respiratory failure Interval history: Patient transferred to ICU for continuous NIPPV and closer monitoring. On levofloxacin for COPD with AE Daughter at the bedside- she states her mother was a smoker, quit about 30 years ago. She has not seen a physician in over 15 years. Patient was seen and examined. Vitals, labs, medications, chart reviewed. Trauma from face mask. Objective - Exam Narrative Exam: General: Moderate respiratory distress on BIPAP HEENT: MMM, EOMI, poor dentition cardiac: S1-S2 heard lungs: Decreased air entry bibasilar crackles abdomen: soft, nontender, nondistended bowel sounds positive extremities: 1+ bipedal edema Skin: no rash or lesion Neuro: no focal deficit Psych: appropriate behavior and mood, poor cognition intact Vital Signs - 12hr 01/26/17 01/26/17 01/26/17 22:30 23:00 23:30 Temperature Pulse Rate 101 H 101 H 100 H Pulse Rate [ Anterior Bilateral Throughout] Pulse Rate [ From Monitor] Respiratory 20 23 17 Rate Respiratory Rate [Anterior Bilateral Throughout] Blood Pressure 96/59 100/58 92/54 O2 Sat by Pulse 97 88 Oximetry 01/27/17 01/27/17 01/27/17 00:00 00:17 00:20 Temperature 97.4 F L Pulse Rate 98 H 97 H Pulse Rate [ Anterior Bilateral Throughout] Pulse Rate [ 97 H From Monitor] Respiratory 18 30 H 30 H Rate Respiratory Rate [Anterior Bilateral Throughout] Blood Pressure 87/54 87/54 O2 Sat by Pulse 89 94 89 Oximetry 01/27/17 01/27/17 01/27/17 00:30 01:00 01:30 Temperature Pulse Rate 97 H 99 H 100 H Pulse Rate [ Anterior Bilateral Throughout] Pulse Rate [ From Monitor] Respiratory 20 24 17 Rate Respiratory Rate [Anterior Bilateral Throughout] Blood Pressure 87/54 95/58 94/57 O2 Sat by Pulse 92 90 92 Oximetry 01/27/17 01/27/17 01/27/17 02:00 02:09 02:24 Temperature Pulse Rate 97 H Pulse Rate [ 99 H 98 H Anterior Bilateral Throughout] Pulse Rate [ From Monitor] Respiratory 27 H Rate Respiratory 30 H 30 H Rate [Anterior Bilateral Throughout] Blood Pressure 83/52 O2 Sat by Pulse 88 Oximetry 01/27/17 01/27/17 01/27/17 02:30 03:00 03:30 Temperature Pulse Rate 97 H 95 H 95 H Pulse Rate [ Anterior Bilateral Throughout] Pulse Rate [ From Monitor] Respiratory 18 23 14 Rate Respiratory Rate [Anterior Bilateral Throughout] Blood Pressure 92/54 85/49 84/54 O2 Sat by Pulse 91 89 91 Oximetry 01/27/17 01/27/17 01/27/17 04:00 04:30 04:43 Temperature 97.6 F Pulse Rate 148 H 93 H Pulse Rate [ Anterior Bilateral Throughout] Pulse Rate [ From Monitor] Respiratory 18 20 20 Rate Respiratory Rate [Anterior Bilateral Throughout] Blood Pressure 83/53 92/56 92/56 O2 Sat by Pulse 92 92 92 Oximetry 01/27/17 01/27/17 01/27/17 05:00 05:21 05:30 Temperature Pulse Rate 92 H 85 91 H Pulse Rate [ Anterior Bilateral Throughout] Pulse Rate [ 92 H From Monitor] Respiratory 30 H 30 H 25 H Rate Respiratory Rate [Anterior Bilateral Throughout] Blood Pressure 85/56 95/56 90/54 O2 Sat by Pulse 98 94 95 Oximetry 01/27/17 01/27/17 01/27/17 06:00 06:30 07:00 Temperature Pulse Rate 90 88 86 Pulse Rate [ Anterior Bilateral Throughout] Pulse Rate [ From Monitor] Respiratory 30 H 30 H 30 H Rate Respiratory Rate [Anterior Bilateral Throughout] Blood Pressure 94/63 96/57 90/56 O2 Sat by Pulse 95 96 93 Oximetry 01/27/17 01/27/17 01/27/17 07:30 08:00 08:01 Temperature 97.4 F L Pulse Rate 87 90 Pulse Rate [ Anterior Bilateral Throughout] Pulse Rate [ From Monitor] Respiratory 30 H 30 H Rate Respiratory Rate [Anterior Bilateral Throughout] Blood Pressure 94/64 94/64 O2 Sat by Pulse 92 94 Oximetry 01/27/17 01/27/17 01/27/17 08:17 08:21 08:39 Temperature Pulse Rate 92 H Pulse Rate [ 91 H 88 Anterior Bilateral Throughout] Pulse Rate [ From Monitor] Respiratory 30 H Rate Respiratory 30 H 28 H Rate [Anterior Bilateral Throughout] Blood Pressure 92/57 O2 Sat by Pulse 93 Oximetry CBC and BMP: 01/27/17 03:57 01/27/17 03:57 ABG, PT/INR, D-dimer: ABG POC ABG pH 7.211 (7.35-7.45) L 01/27/17 05:05 POC ABG pCO2 96.9 (35-45) H 01/27/17 05:05 POC ABG pO2 83 (80-105) 01/27/17 05:05 POC ABG HCO3 38.9 01/27/17 05:05 POC ABG Total CO2 42 01/27/17 05:05 POC ABG O2 Sat 92 01/27/17 05:05 PT/INR, D-dimer PT 15.9 Sec. (12.2-14.9) H 01/26/17 05:25 INR 1.28 (0.87-1.13) H 01/26/17 05:25 D-Dimer 1566.79 ng/mlDDU (0-234) H 01/24/17 18:50 Abnormal lab findings: Abnormal Labs 01/24/17 01/25/17 01/25/17 21:54 03:33 03:33 RBC 6.88 H Hgb 18.5 H Hct 60.0 H* MCH 27 L RDW 19.4 H Plt Count 126 L Lymph % (Auto) 3.8 L [place] % (Auto) 13.2 H Lymph # 0.3 L [place] # 1.2 H Seg Neutrophils % 82.4 H PT INR POC ABG pH POC ABG pCO2 POC ABG pO2 Sodium Potassium Chloride Carbon Dioxide BUN Creatinine Glucose Calcium Total Bilirubin CK-MB (CK-2) 6.2 H 5.5 H CK-MB (CK-2) Rel Index 4.7 H 5.6 H Total Protein Albumin Crossmatch 01/25/17 01/25/17 01/25/17 03:33 08:33 21:38 RBC Hgb Hct MCH RDW Plt Count Lymph % (Auto) [place] % (Auto) Lymph # [place] # Seg Neutrophils % PT INR POC ABG pH 7.101 L POC ABG pCO2 116.4 H POC ABG pO2 71 L Sodium Potassium 5.7 H Chloride 94.1 L Carbon Dioxide BUN 28 H Creatinine Glucose 115 H Calcium Total Bilirubin CK-MB (CK-2) CK-MB (CK-2) Rel Index Total Protein Albumin Crossmatch See Detail 01/26/17 01/26/17 01/26/17 00:16 05:25 05:25 RBC 6.10 H Hgb 16.6 H Hct 55.8 H* MCH 27 L RDW 19.5 H Plt Count 77 L Lymph % (Auto) 4.1 L [place] % (Auto) 11.9 H Lymph # 0.3 L [place] # 1.0 H Seg Neutrophils % 83.5 H PT 15.9 H INR 1.28 H POC ABG pH 7.184 L POC ABG pCO2 99.2 H POC ABG pO2 153 H Sodium Potassium Chloride Carbon Dioxide BUN Creatinine Glucose Calcium Total Bilirubin CK-MB (CK-2) CK-MB (CK-2) Rel Index Total Protein Albumin Crossmatch 01/26/17 01/26/17 01/27/17 05:25 06:41 03:57 RBC 6.00 H Hgb 16.2 H Hct 53.7 H MCH 27 L RDW 19.9 H Plt Count 79 L Lymph % (Auto) 5.3 L [place] % (Auto) 14.4 H Lymph # 0.4 L [place] # 1.1 H Seg Neutrophils % 80.0 H PT INR POC ABG pH 7.193 L POC ABG pCO2 99.2 H POC ABG pO2 117 H Sodium Potassium Chloride 96.0 L Carbon Dioxide 34 H BUN 38 H Creatinine 1.6 H Glucose 111 H Calcium Total Bilirubin 1.70 H CK-MB (CK-2) CK-MB (CK-2) Rel Index Total Protein 5.6 L Albumin 3.1 L Crossmatch 01/27/17 01/27/17 03:57 05:05 RBC Hgb Hct MCH RDW Plt Count Lymph % (Auto) [place] % (Auto) Lymph # [place] # Seg Neutrophils % PT INR POC ABG pH 7.211 L POC ABG pCO2 96.9 H POC ABG pO2 Sodium 136 L Potassium Chloride 93.8 L Carbon Dioxide BUN 47 H Creatinine 1.9 H Glucose 113 H Calcium 8.2 L Total Bilirubin CK-MB (CK-2) CK-MB (CK-2) Rel Index Total Protein Albumin Crossmatch Allied health notes reviewed: RT (reviewed ABG results)
[2017-01-27 11:28] LABS: ISTAT Base Excess 9; ISTAT HCO3 37.5; ISTAT PCO2 97.9 (35-45); ISTAT PH 7.191 (7.35-7.45); ISTAT PO2 85 (80-105); ISTAT SO2 92; ISTAT TCO2 40
--- NOTE | 2017-01-27 13:05 | Progress Note ---
Assessment and Plan Severe Cor pulmonale (PASP 90MMHG) EF 50-55% on echo Acute pulmonary edema Ascities s/p paracentesis Anemia Thrombocytopenia Subjective Date of service: 01/27/17 Principal diagnosis: acute hypoxemic hypercapnic respiratory failure Interval history: Patient remains on bipap therapy. Daughter at bedside. Objective Vital Signs Temp Pulse Pulse Pulse Resp Resp BP 01/27/17 12:00 97.7 F 01/27/17 11:11 94 H 30 H 99/61 01/27/17 08:39 88 28 H 01/27/17 08:21 91 H 30 H 01/27/17 08:17 92 H 30 H 92/57 01/27/17 08:01 90 30 H 94/64 01/27/17 08:00 97.4 F L 01/27/17 07:30 87 30 H 94/64 01/27/17 07:00 86 30 H 90/56 01/27/17 06:30 88 30 H 96/57 01/27/17 06:00 90 30 H 94/63 01/27/17 05:30 91 H 25 H 90/54 01/27/17 05:21 85 30 H 95/56 01/27/17 05:00 92 H 92 H 30 H 85/56 01/27/17 04:43 97.6 F 20 92/56 01/27/17 04:30 93 H 20 92/56 01/27/17 04:00 148 H 18 83/53 01/27/17 03:30 95 H 14 84/54 01/27/17 03:00 95 H 23 85/49 01/27/17 02:30 97 H 18 92/54 01/27/17 02:24 98 H 30 H 01/27/17 02:09 99 H 30 H 01/27/17 02:00 97 H 27 H 83/52 01/27/17 01:30 100 H 17 94/57 01/27/17 01:00 99 H 24 95/58 01/27/17 00:30 97 H 20 87/54 01/27/17 00:20 97 H 30 H 01/27/17 00:17 97 H 30 H 87/54 01/27/17 00:00 97.4 F L 98 H 18 87/54 01/26/17 23:30 100 H 17 92/54 01/26/17 23:00 101 H 23 100/58 01/26/17 22:30 101 H 20 96/59 01/26/17 22:00 100 H 30 H 93/62 01/26/17 21:30 103 H 18 95/61 01/26/17 21:00 103 H 22 97/63 01/26/17 20:40 102 H 30 H 01/26/17 20:30 104 H 26 H 81/48 01/26/17 20:29 102 H 30 H 01/26/17 20:28 01/26/17 20:26 103 H 30 H 82/52 01/26/17 20:00 98.3 F 110 H 16 82/52 01/26/17 19:30 104 H 17 85/51 01/26/17 19:00 100 H 18 81/49 01/26/17 18:30 102 H 18 76/49 01/26/17 18:00 101 H 18 74/44 01/26/17 17:31 102 H 19 74/38 01/26/17 17:00 100 H 16 74/38 01/26/17 16:30 100 H 16 77/41 01/26/17 16:00 102 H 14 80/38 01/26/17 15:30 94 H 14 80/46 01/26/17 15:28 01/26/17 15:00 84 23 70/40 01/26/17 14:35 83 30 H 01/26/17 14:30 83 29 H 85/45 01/26/17 14:23 84 84 30 H 30 H 77/45 01/26/17 14:00 81 30 H 77/45 01/26/17 13:30 84 30 H 81/45 Pulse Ox 01/27/17 12:00 01/27/17 11:11 96 01/27/17 08:39 01/27/17 08:21 01/27/17 08:17 93 01/27/17 08:01 94 01/27/17 08:00 01/27/17 07:30 92 01/27/17 07:00 93 01/27/17 06:30 96 01/27/17 06:00 95 01/27/17 05:30 95 01/27/17 05:21 94 01/27/17 05:00 98 01/27/17 04:43 92 01/27/17 04:30 92 01/27/17 04:00 92 01/27/17 03:30 91 01/27/17 03:00 89 01/27/17 02:30 01/27/17 02:24 01/27/17 02:09 01/27/17 02:00 88 01/27/17 01:30 92 01/27/17 01:00 90 01/27/17 00:30 92 01/27/17 00:20 89 01/27/17 00:17 94 01/27/17 00:00 89 01/26/17 23:30 88 01/26/17 23:00 01/26/17 22:30 97 01/26/17 22:00 01/26/17 21:30 88 01/26/17 21:00 88 01/26/17 20:40 01/26/17 20:30 88 01/26/17 20:29 01/26/17 20:28 86 01/26/17 20:26 01/26/17 20:00 87 01/26/17 19:30 85 01/26/17 19:00 92 01/26/17 18:30 90 01/26/17 18:00 89 01/26/17 17:31 91 01/26/17 17:00 88 01/26/17 16:30 90 01/26/17 16:00 89 01/26/17 15:30 88 01/26/17 15:28 88 01/26/17 15:00 95 01/26/17 14:35 01/26/17 14:30 96 01/26/17 14:23 01/26/17 14:00 01/26/17 13:30 96 - Physical Examination Cardiac: Positive: Reg Rate and Rhythm - Labs and Meds CBC 01/27/17 Range/Units 03:57 WBC 7.4 (4.5-11.0) K/mm3 RBC 6.00 H (3.65-5.03) M/mm3 Hgb 16.2 H (10.1-14.3) gm/dl Hct 53.7 H (30.3-42.9) % Plt Count 79 L (140-440) K/mm3 Lymph # 0.4 L (1.2-5.4) K/mm3 [place] # 1.1 H (0.0-0.8) K/mm3 Eos # 0.0 (0.0-0.4) K/mm3 Baso # 0.0 (0.0-0.1) K/mm3 Comprehensive Metabolic Panel 01/27/17 Range/Units 03:57 Sodium 136 L (137-145) mmol/L Potassium 4.8 (3.6-5.0) mmol/L Chloride 93.8 L (98-107) mmol/L Carbon Dioxide 29 (22-30) mmol/L BUN 47 H (7-17) mg/dL Creatinine 1.9 H (0.7-1.2) mg/dL Glucose 113 H (65-100) mg/dL Calcium 8.2 L (8.4-10.2) mg/dL - Imaging and Cardiology EKG: image reviewed
[2017-01-27 17:05] LABS: ISTAT Base Excess 10; ISTAT HCO3 32.5; ISTAT PCO2 39.8 (35-45); ISTAT PO2 57 (80-105); ISTAT SO2 92; ISTAT TCO2 34
--- NOTE | 2017-01-27 17:16 | Discharge Summary ---
Providers - Providers Date of Admission: 01/24/17 21:35 Attending physician: EDILBERTO LACY MD 01/25/17 02:01 Consult to Physician [CONS] Urgent Consulting Provider: XOCHILT ROMO Reason For Exam: resp failure Notified:: yes 01/26/17 16:48 Consult to Physician [CONS] Routine Consulting Provider: JUSTIN LOMAX Reason For Exam: [address] consult to:: on-call nephrology Notified:: YES If yes, spoke with:: DR. LOMAX Time called:: 17:17 Primary care physician: [employer] Hospitalization Condition: Critical Hospital course: 66-year-old woman with no medical problems comes emergency room with complaints of lower extremity edema 1 month and not feeling well. She noted to have bilateral pleural effusion with pulmonary edema, ascites, acute hypoxic respiratory failure. She was admitted to telemetry then transferred to ICU for low oxygen saturation and close monitoring. She suspected of having chronic obstructive sleep apnea, chronic obesity hypoventilation, chronic hypoxia. She presented with worsening shortness of breath 3 months. Her daughter states that she most likely had symptoms like this for over 20 years but had only gotten very adamant last few months. She was treated for acute hypoxic respiratory failure, acute exacerbation of diastolic CHF, she received BiPAP in the ICU, received IV diuresis, she was noted to have ascites for which he had therapeutic paracentesis and fluid analysis was consistent with transudative fluid. She also suffered acute kidney injury which is most likely due to vasomotor nephropathy, she has been followed by nephrology. Echocardiogram showed severe pulmonary hypertension which is most likely etiology of Acute hypoxic respiratory failure. She is being transferred to [facility] to their pulmonary hypertension program for further treatment that she needs higher level of daily can offer at this hospital. Diagnosis Acute hypoxic respiratory failure Acute Diastolic CHF exacerbation Right heart failure severe pulmonary htn Hyperkalemia Polycythemia likely due to underlying sleep apnea Obesity Hypoventilation Ascitis DOUGLAS- vasomotor nepropathy Bilateral pleural effusion Disposition: DC/TX SHORT-TERM GEN HOSP INPT Time spent for discharge: 35 minutes Core Measure Documentation - Palliative Care Palliative Care/ Comfort Measures: Not Applicable - Core Measures Any of the following diagnoses?: heart failure - Heart Failure Discharge Requirements CONNIE/ARB for LVSD if EF <40%: Not Applicable Beta elizabeth at discharge: No Reason for no beta elizabeth on DC: Hypotension Exam - Physical Exam Narrative exam: General: Moderate respiratory distress HEENT: MMM, EOMI, poor dentition cardiac: S1-S2 heard lungs: Decreased air entry bibasilar crackles abdomen: soft, nontender, nondistended bowel sounds positive extremities: 1+ bipedal edema Skin: no rash or lesion Neuro: no focal deficit Psych: appropriate behavior and mood, cognition intact - Constitutional Vitals: Temp Pulse Resp BP Pulse Ox 97.6 F 61 30 H 112/67 96 01/27/17 15:58 01/27/17 16:57 01/27/17 16:57 01/27/17 16:57 01/27/17 16:57 Plan Follow up with: PRIMARY CAREMD [Primary Care Provider] - 3-5 Days
[2017-01-28] MEDS: DUONEB 0.5 MG-3 MG/3 ML SOLN IH SCH ×4 (03:36→21:19)
[2017-01-28 08:23] LABS: ISTAT Base Excess 11; ISTAT HCO3 35.5; ISTAT PCO2 57.3 (35-45); ISTAT PH 7.399 (7.35-7.45); ISTAT PO2 75 (80-105); ISTAT SO2 94; ISTAT TCO2 37
[2017-01-28] MEDS ORDERED: WATER FOR INJ (PF) 10 ML ONE (08:56)
[2017-01-28] MEDS: DIAMOX IV SCH (09:06)
[2017-01-28] MEDS: PROAMATINE PO SCH ×2 (09:06→13:54)
--- NOTE | 2017-01-28 10:02 | Progress Note ---
Assessment and Plan - Patient Problems (1) Acute hypoxemic respiratory failure Current Visit: Yes Status: Acute Plan to address problem: Restrict supplemental oxygen in view of hypercapnic respiratory failure. Continue with NIPPV prn and QHS (2) Acute hypercapnic respiratory failure Current Visit: Yes Status: Acute Plan to address problem: Improving . Continues to have respiratory acidosis. Continue with NIPPV prn and QHS. (3) Morbid obesity due to excess calories Current Visit: Yes Status: Acute Plan to address problem: Life style modifications Weight loss Will need formal PSG as an outpatient. (4) Pleural effusion, bilateral Current Visit: Yes Status: Acute Plan to address problem: Currently getting diuresis. Serial CXR (5) Erythrocytosis Current Visit: Yes Status: Acute Plan to address problem: Probably secondary to chronic untreated hypoxia. Monitor for now (6) COPD (chronic obstructive pulmonary disease) with acute bronchitis Current Visit: Yes Status: Acute Plan to address problem: Continue with bronchodilators Continue with antibiotics VTE prophylaxis (7) Hypotension Current Visit: Yes Status: Acute Qualifiers: Trimester: T Plan to address problem: Probably secondary to medications. Volume resuscitation-titrate to blood pressure response Monitor hemodynamics closely Subjective Date of service: 01/21/17 Principal diagnosis: acute hypoxemic hypercapnic respiratory failure Interval history: Patient transferred to ICU for continuous NIPPV and closer monitoring. On levofloxacin for COPD with AE Daughter at the bedside- she states her mother was a smoker, quit about 30 years ago. She has not seen a physician in over 15 years. Patient was seen and examined. Vitals, labs, medications, chart reviewed. Much improved. Awake and alert this morning, appropriately answering questions. Awaiting transfer to [facility] Objective - Exam Narrative Exam: General: Mild respiratory distress on 4L NC HEENT: MMM, EOMI, poor dentition cardiac: S1-S2 heard lungs: Decreased air entry bibasilar crackles abdomen: soft, non-tender, non-distended bowel sounds positive extremities: 1+ bipedal edema Skin: no rash or lesion Neuro: no focal deficit Psych: appropriate behavior and mood, cognition intact Vital Signs - 12hr 01/27/17 01/27/17 01/27/17 22:30 23:00 23:30 Temperature Pulse Rate 95 H 97 H 98 H Pulse Rate [ Anterior Bilateral Throughout] Pulse Rate [ From Monitor] Respiratory 19 18 18 Rate Respiratory Rate [Anterior Bilateral Throughout] Blood Pressure 116/69 124/70 113/71 O2 Sat by Pulse 92 91 93 Oximetry 01/28/17 01/28/17 01/28/17 00:00 00:30 01:00 Temperature 99.6 F Pulse Rate 98 H 93 H 94 H Pulse Rate [ Anterior Bilateral Throughout] Pulse Rate [ From Monitor] Respiratory 18 17 18 Rate Respiratory Rate [Anterior Bilateral Throughout] Blood Pressure 104/63 102/54 110/64 O2 Sat by Pulse 92 91 95 Oximetry 01/28/17 01/28/17 01/28/17 01:30 02:00 02:05 Temperature Pulse Rate 97 H 97 H Pulse Rate [ 108 H Anterior Bilateral Throughout] Pulse Rate [ From Monitor] Respiratory 18 18 Rate Respiratory 18 Rate [Anterior Bilateral Throughout] Blood Pressure 114/65 115/64 O2 Sat by Pulse 95 Oximetry 01/28/17 01/28/17 01/28/17 02:15 02:30 03:00 Temperature Pulse Rate 100 H 107 H Pulse Rate [ 105 H Anterior Bilateral Throughout] Pulse Rate [ From Monitor] Respiratory 18 17 Rate Respiratory 18 Rate [Anterior Bilateral Throughout] Blood Pressure 105/58 109/64 O2 Sat by Pulse 93 92 Oximetry 01/28/17 01/28/17 01/28/17 03:30 04:00 04:17 Temperature 99.0 F Pulse Rate 102 H 105 H Pulse Rate [ Anterior Bilateral Throughout] Pulse Rate [ From Monitor] Respiratory 18 18 Rate Respiratory Rate [Anterior Bilateral Throughout] Blood Pressure 107/61 102/63 O2 Sat by Pulse 94 93 93 Oximetry 01/28/17 01/28/17 01/28/17 04:30 05:00 05:22 Temperature Pulse Rate 99 H 97 H 96 H Pulse Rate [ Anterior Bilateral Throughout] Pulse Rate [ From Monitor] Respiratory 19 18 18 Rate Respiratory Rate [Anterior Bilateral Throughout] Blood Pressure 105/64 103/62 103/62 O2 Sat by Pulse 95 95 96 Oximetry 01/28/17 01/28/17 01/28/17 05:30 06:00 06:30 Temperature Pulse Rate 93 H 90 87 Pulse Rate [ Anterior Bilateral Throughout] Pulse Rate [ From Monitor] Respiratory 18 19 18 Rate Respiratory Rate [Anterior Bilateral Throughout] Blood Pressure 107/61 109/62 104/64 O2 Sat by Pulse 95 97 94 Oximetry 01/28/17 01/28/17 01/28/17 07:00 07:27 07:30 Temperature Pulse Rate 84 89 101 H Pulse Rate [ Anterior Bilateral Throughout] Pulse Rate [ From Monitor] Respiratory 18 18 12 Rate Respiratory Rate [Anterior Bilateral Throughout] Blood Pressure 120/69 120/69 128/75 O2 Sat by Pulse 98 96 92 Oximetry 01/28/17 01/28/17 01/28/17 07:36 07:50 08:00 Temperature 98.1 F Pulse Rate 120 H Pulse Rate [ 104 H 113 H Anterior Bilateral Throughout] Pulse Rate [ From Monitor] Respiratory 18 Rate Respiratory 12 14 Rate [Anterior Bilateral Throughout] Blood Pressure 105/86 O2 Sat by Pulse 88 Oximetry 01/28/17 01/28/17 01/28/17 08:08 08:31 08:43 Temperature Pulse Rate 123 H Pulse Rate [ Anterior Bilateral Throughout] Pulse Rate [ 120 H From Monitor] Respiratory 17 18 Rate Respiratory Rate [Anterior Bilateral Throughout] Blood Pressure 98/53 O2 Sat by Pulse 91 89 90 Oximetry CBC and BMP: 01/27/17 03:57 01/27/17 03:57 ABG, PT/INR, D-dimer: ABG POC ABG pH 7.399 (7.35-7.45) 01/28/17 07:27 POC ABG pCO2 57.3 (35-45) H 01/28/17 07:27 POC ABG pO2 75 (80-105) L 01/28/17 07:27 POC ABG HCO3 35.5 01/28/17 07:27 POC ABG Total CO2 37 01/28/17 07:27 POC ABG O2 Sat 94 01/28/17 07:27 PT/INR, D-dimer PT 15.9 Sec. (12.2-14.9) H 01/26/17 05:25 INR 1.28 (0.87-1.13) H 01/26/17 05:25 D-Dimer 1566.79 ng/mlDDU (0-234) H 01/24/17 18:50 Abnormal lab findings: Abnormal Labs 01/24/17 01/25/17 01/25/17 21:54 03:33 03:33 RBC 6.88 H Hgb 18.5 H Hct 60.0 H* MCH 27 L RDW 19.4 H Plt Count 126 L Lymph % (Auto) 3.8 L Mcdowell % (Auto) 13.2 H Lymph # 0.3 L Mcdowell # 1.2 H Seg Neutrophils % 82.4 H PT INR POC ABG pH POC ABG pCO2 POC ABG pO2 Sodium Potassium Chloride Carbon Dioxide BUN Creatinine Glucose Calcium Total Bilirubin CK-MB (CK-2) 6.2 H 5.5 H CK-MB (CK-2) Rel Index 4.7 H 5.6 H Total Protein Albumin Crossmatch 01/25/17 01/25/17 01/25/17 03:33 08:33 21:38 RBC Hgb Hct MCH RDW Plt Count Lymph % (Auto) Mcdowell % (Auto) Lymph # Mcdowell # Seg Neutrophils % PT INR POC ABG pH 7.101 L POC ABG pCO2 116.4 H POC ABG pO2 71 L Sodium Potassium 5.7 H Chloride 94.1 L Carbon Dioxide BUN 28 H Creatinine Glucose 115 H Calcium Total Bilirubin CK-MB (CK-2) CK-MB (CK-2) Rel Index Total Protein Albumin Crossmatch See Detail 01/26/17 01/26/17 01/26/17 00:16 05:25 05:25 RBC 6.10 H Hgb 16.6 H Hct 55.8 H* MCH 27 L RDW 19.5 H Plt Count 77 L Lymph % (Auto) 4.1 L Mcdowell % (Auto) 11.9 H Lymph # 0.3 L Mcdowell # 1.0 H Seg Neutrophils % 83.5 H PT 15.9 H INR 1.28 H POC ABG pH 7.184 L POC ABG pCO2 99.2 H POC ABG pO2 153 H Sodium Potassium Chloride Carbon Dioxide BUN Creatinine Glucose Calcium Total Bilirubin CK-MB (CK-2) CK-MB (CK-2) Rel Index Total Protein Albumin Crossmatch 01/26/17 01/26/17 01/27/17 05:25 06:41 03:57 RBC 6.00 H Hgb 16.2 H Hct 53.7 H MCH 27 L RDW 19.9 H Plt Count 79 L Lymph % (Auto) 5.3 L Mcdowell % (Auto) 14.4 H Lymph # 0.4 L Mcdowell # 1.1 H Seg Neutrophils % 80.0 H PT INR POC ABG pH 7.193 L POC ABG pCO2 99.2 H POC ABG pO2 117 H Sodium Potassium Chloride 96.0 L Carbon Dioxide 34 H BUN 38 H Creatinine 1.6 H Glucose 111 H Calcium Total Bilirubin 1.70 H CK-MB (CK-2) CK-MB (CK-2) Rel Index Total Protein 5.6 L Albumin 3.1 L Crossmatch 01/27/17 01/27/17 01/27/17 03:57 05:05 11:11 RBC Hgb Hct MCH RDW Plt Count Lymph % (Auto) Mcdowell % (Auto) Lymph # Mcdowell # Seg Neutrophils % PT INR POC ABG pH 7.211 L 7.191 L POC ABG pCO2 96.9 H 97.9 H POC ABG pO2 Sodium 136 L Potassium Chloride 93.8 L Carbon Dioxide BUN 47 H Creatinine 1.9 H Glucose 113 H Calcium 8.2 L Total Bilirubin CK-MB (CK-2) CK-MB (CK-2) Rel Index Total Protein Albumin Crossmatch 01/27/17 01/28/17 16:57 07:27 RBC Hgb Hct MCH RDW Plt Count Lymph % (Auto) Mcdowell % (Auto) Lymph # Mcdowell # Seg Neutrophils % PT INR POC ABG pH 7.520 H POC ABG pCO2 57.3 H POC ABG pO2 57 L 75 L Sodium Potassium Chloride Carbon Dioxide BUN Creatinine Glucose Calcium Total Bilirubin CK-MB (CK-2) CK-MB (CK-2) Rel Index Total Protein Albumin Crossmatch
--- NOTE | 2017-01-28 10:38 | Progress Note ---
Assessment and Plan Severe Cor pulmonale (PASP 90MMHG) EF 50-55% on echo Acute pulmonary edema Ascities s/p paracentesis Anemia Thrombocytopenia Subjective Date of service: 01/28/17 Principal diagnosis: acute hypoxemic hypercapnic respiratory failure Interval history: Patient is off Bipap, currently on high flow oxygen. Awaits transfer to [facility]. Objective Vital Signs Temp Pulse Pulse Pulse Resp Resp BP 01/28/17 10:00 123 H 16 102/66 01/28/17 09:30 120 H 18 104/68 01/28/17 09:00 125 H 16 107/60 01/28/17 08:43 120 H 18 01/28/17 08:31 123 H 17 98/53 01/28/17 08:08 01/28/17 08:00 98.1 F 120 H 18 105/86 01/28/17 07:50 113 H 14 01/28/17 07:36 104 H 12 01/28/17 07:30 101 H 12 128/75 01/28/17 07:27 89 18 120/69 01/28/17 07:00 84 18 120/69 01/28/17 06:30 87 18 104/64 01/28/17 06:00 90 19 109/62 01/28/17 05:30 93 H 18 107/61 01/28/17 05:22 96 H 18 103/62 01/28/17 05:00 97 H 18 103/62 01/28/17 04:30 99 H 19 105/64 01/28/17 04:17 01/28/17 04:00 99.0 F 105 H 18 102/63 01/28/17 03:30 102 H 18 107/61 01/28/17 03:00 107 H 17 109/64 01/28/17 02:30 100 H 18 105/58 01/28/17 02:15 105 H 18 01/28/17 02:05 108 H 18 01/28/17 02:00 97 H 18 115/64 01/28/17 01:30 97 H 18 114/65 01/28/17 01:00 94 H 18 110/64 01/28/17 00:30 93 H 17 102/54 01/28/17 00:00 99.6 F 98 H 18 104/63 01/27/17 23:30 98 H 18 113/71 01/27/17 23:00 97 H 18 124/70 01/27/17 22:30 95 H 19 116/69 01/27/17 22:00 92 H 19 119/73 01/27/17 21:30 91 H 18 135/72 01/27/17 21:00 84 18 130/69 01/27/17 20:48 01/27/17 20:40 84 18 01/27/17 20:30 83 18 129/67 01/27/17 20:00 99.1 F 87 78 19 18 124/73 01/27/17 19:50 63 63 18 18 129/67 01/27/17 19:30 81 18 134/71 01/27/17 19:00 84 18 128/65 01/27/17 18:30 91 H 18 107/71 01/27/17 18:00 91 H 18 109/63 01/27/17 17:30 95 H 18 131/86 01/27/17 17:01 90 24 118/67 01/27/17 16:57 61 30 H 112/67 01/27/17 16:31 67 30 H 112/67 01/27/17 16:00 89 30 H 96/62 01/27/17 15:58 97.6 F 01/27/17 15:36 99 H 32 H 125/81 01/27/17 15:30 103 H 29 H 125/81 01/27/17 15:29 106 H 30 H 01/27/17 15:19 103 H 30 H 01/27/17 15:01 99 H 18 133/85 01/27/17 14:31 85 30 H 133/85 01/27/17 14:01 55 L 30 H 111/84 01/27/17 13:30 65 30 H 117/75 01/27/17 13:00 86 25 H 110/65 01/27/17 12:30 95 H 24 98/68 01/27/17 12:00 97.7 F 98 H 12 88/59 01/27/17 11:30 97 H 18 103/66 01/27/17 11:11 94 H 30 H 99/61 01/27/17 11:00 95 H 15 99/61 Pulse Ox 01/28/17 10:00 88 01/28/17 09:30 90 01/28/17 09:00 87 01/28/17 08:43 90 01/28/17 08:31 89 01/28/17 08:08 91 01/28/17 08:00 88 01/28/17 07:50 01/28/17 07:36 01/28/17 07:30 92 01/28/17 07:27 96 01/28/17 07:00 98 01/28/17 06:30 94 01/28/17 06:00 97 01/28/17 05:30 95 01/28/17 05:22 96 01/28/17 05:00 95 01/28/17 04:30 95 01/28/17 04:17 93 01/28/17 04:00 93 01/28/17 03:30 94 01/28/17 03:00 92 01/28/17 02:30 93 01/28/17 02:15 01/28/17 02:05 01/28/17 02:00 01/28/17 01:30 95 01/28/17 01:00 95 01/28/17 00:30 91 01/28/17 00:00 92 01/27/17 23:30 93 01/27/17 23:00 91 01/27/17 22:30 92 01/27/17 22:00 94 01/27/17 21:30 95 01/27/17 21:00 96 01/27/17 20:48 96 01/27/17 20:40 97 01/27/17 20:30 96 01/27/17 20:00 96 01/27/17 19:50 96 01/27/17 19:30 94 01/27/17 19:00 93 01/27/17 18:30 92 01/27/17 18:00 95 01/27/17 17:30 94 01/27/17 17:01 96 01/27/17 16:57 96 01/27/17 16:31 97 01/27/17 16:00 97 01/27/17 15:58 01/27/17 15:36 93 01/27/17 15:30 88 01/27/17 15:29 01/27/17 15:19 01/27/17 15:01 80 L 01/27/17 14:31 95 01/27/17 14:01 93 01/27/17 13:30 97 01/27/17 13:00 93 01/27/17 12:30 89 01/27/17 12:00 85 01/27/17 11:30 87 01/27/17 11:11 96 01/27/17 11:00 95 - Physical Examination General: No Apparent Distress HEENT: Positive: PERRL Neck: Positive: neck supple Cardiac: Positive: Tachycardia Neuro: Positive: Grossly Intact - Imaging and Cardiology EKG: image reviewed
[2017-01-28] MEDS ORDERED: LANOXIN PO SCH (17:00)
--- NOTE | 2017-01-28 17:07 | Progress Note ---
Assessment and Plan - Patient Problems (1) DOUGLAS (acute kidney injury) Current Visit: Yes Status: Acute Plan to address problem: Acute Kidney Injury most likely hemodynamically mediated in the setting of hypotension and CHF exacerbation. Creatinine continue to increase. Monitor renal function. Renal function is guarded. (2) Hyperkalemia Current Visit: Yes Status: Acute Plan to address problem: Improved. (3) Hypotension Current Visit: Yes Status: Acute Qualifiers: Hypotension type: H Trimester: T Plan to address problem: Improving. (4) Acute hypercapnic respiratory failure Current Visit: Yes Status: Acute Plan to address problem: BIPAP. (5) Acute hypoxemic respiratory failure Current Visit: Yes Status: Acute (6) Cor pulmonale Current Visit: Yes Status: Chronic Subjective Principal diagnosis: acute hypoxemic hypercapnic respiratory failure Interval history: Patient is doing ok. Objective - Vital Signs Vital signs: Vital Signs - 12hr 01/28/17 01/28/17 01/28/17 05:22 05:30 06:00 Temperature Pulse Rate 96 H 93 H 90 Pulse Rate [ Anterior Bilateral Throughout] Pulse Rate [ From Monitor] Respiratory 18 18 19 Rate Respiratory Rate [Anterior Bilateral Throughout] Blood Pressure 103/62 107/61 109/62 O2 Sat by Pulse 96 95 97 Oximetry 01/28/17 01/28/17 01/28/17 06:30 07:00 07:27 Temperature Pulse Rate 87 84 89 Pulse Rate [ Anterior Bilateral Throughout] Pulse Rate [ From Monitor] Respiratory 18 18 18 Rate Respiratory Rate [Anterior Bilateral Throughout] Blood Pressure 104/64 120/69 120/69 O2 Sat by Pulse 94 98 96 Oximetry 01/28/17 01/28/17 01/28/17 07:30 07:36 07:50 Temperature Pulse Rate 101 H Pulse Rate [ 104 H 113 H Anterior Bilateral Throughout] Pulse Rate [ From Monitor] Respiratory 12 Rate Respiratory 12 14 Rate [Anterior Bilateral Throughout] Blood Pressure 128/75 O2 Sat by Pulse 92 Oximetry 01/28/17 01/28/17 01/28/17 08:00 08:08 08:31 Temperature 98.1 F Pulse Rate 120 H 123 H Pulse Rate [ Anterior Bilateral Throughout] Pulse Rate [ From Monitor] Respiratory 18 17 Rate Respiratory Rate [Anterior Bilateral Throughout] Blood Pressure 105/86 98/53 O2 Sat by Pulse 88 91 89 Oximetry 01/28/17 01/28/17 01/28/17 08:43 09:00 09:30 Temperature Pulse Rate 125 H 120 H Pulse Rate [ Anterior Bilateral Throughout] Pulse Rate [ 120 H From Monitor] Respiratory 18 16 18 Rate Respiratory Rate [Anterior Bilateral Throughout] Blood Pressure 107/60 104/68 O2 Sat by Pulse 90 87 90 Oximetry 01/28/17 01/28/17 01/28/17 10:00 10:30 11:00 Temperature Pulse Rate 123 H 123 H 118 H Pulse Rate [ Anterior Bilateral Throughout] Pulse Rate [ From Monitor] Respiratory 16 17 19 Rate Respiratory Rate [Anterior Bilateral Throughout] Blood Pressure 102/66 99/63 92/62 O2 Sat by Pulse 88 90 88 Oximetry 01/28/17 01/28/17 01/28/17 11:30 12:00 12:31 Temperature 98.4 F Pulse Rate 119 H 117 H Pulse Rate [ Anterior Bilateral Throughout] Pulse Rate [ 118 H From Monitor] Respiratory 17 19 19 Rate Respiratory Rate [Anterior Bilateral Throughout] Blood Pressure 108/71 104/63 O2 Sat by Pulse 85 88 88 Oximetry 01/28/17 01/28/17 14:55 15:06 Temperature Pulse Rate Pulse Rate [ 122 H 119 H Anterior Bilateral Throughout] Pulse Rate [ From Monitor] Respiratory Rate Respiratory 20 16 Rate [Anterior Bilateral Throughout] Blood Pressure O2 Sat by Pulse Oximetry - General Appearance General appearance: well-developed, well-nourished, appears stated age, obese, other (not in distress) EENT: ATNC, PERRL, mucous membranes moist, vision intact, hearing diminished Neck: supple Respiratory: Present: Rales Cardiology: regular, S1S2, no murmurs Gastrointestinal: normoactive bowel sounds, no tenderness, no distended, obese Integumentary: no rash Neurologic: no asterixis, other (hard of hearing) Musculoskeletal: other (no edema) Psychiatric: cooperative - Lab 01/27/17 03:57 01/27/17 03:57 Most recent lab results Calcium 8.2 mg/dL (8.4-10.2) L 01/27/17 03:57
--- NOTE | 2017-01-28 17:10 | Progress Note ---
Assessment and Plan Assessment and plan: 66-year-old woman with no medical problems comes emergency room with complaints of lower extremity edema 1 month and not feeling well. She noted to have bilateral pleural effusion with pulmonary edema, ascites, acute hypoxic respiratory failure. She was admitted to telemetry then transferred to ICU for low oxygen saturation and close monitoring. She suspected of having chronic obstructive sleep apnea, chronic obesity hypoventilation, chronic hypoxia. She presented with worsening shortness of breath 3 months. Her daughter states that she most likely had symptoms like this for over 20 years but had only gotten very adamant last few months. She was treated for acute hypoxic respiratory failure, acute exacerbation of diastolic CHF, she received BiPAP in the ICU, received IV diuresis, she was noted to have ascites for which he had therapeutic paracentesis and fluid analysis was consistent with transudative fluid. She also suffered acute kidney injury which is most likely due to vasomotor nephropathy, she has been followed by nephrology. Echocardiogram showed severe pulmonary hypertension which is most likely etiology of Acute hypoxic respiratory failure. 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 - Cardiology following - beta elizabeth, CONNIE inhibitor on hold for low BP, continue dig and midodrine Hyperkalemia - Status post Kayexalate, potassium level improved - Continue to monitor Thrombocytopenia - Likely reactive due to acute illness, continue to monitor Polycythemia likely due to underlying sleep apnea - Monitor H&H Ascitis on abdominal CT - Status post paracentesis, removing 800 mL of ascitic fluid -2/2 CHF DOUGLAS - likely worsening due to diuresis and poor renal perfusion given CHF and hypotension - Continue to monitor renal function and consult nephrology Bilateral pleural effusion - Continue IV diuretic cautiously - due to CHF Critical Care time: 32 minutes Plan discussed with patient and her daughter History Interval history: Continues to have shortness of breath, has been dependent on BiPAP all day, denies cough,. Hospitalist Physical - Physical exam Narrative exam: General: Moderate respiratory distress HEENT: MMM, EOMI, poor dentition cardiac: S1-S2 heard lungs: Decreased air entry bibasilar crackles abdomen: soft, nontender, nondistended bowel sounds positive extremities: 1+ bipedal edema Skin: no rash or lesion Neuro: no focal deficit Psych: appropriate behavior and mood, cognition intact - Constitutional Vitals: Temp Pulse Resp BP Pulse Ox 98.4 F 119 H 16 104/63 88 01/28/17 12:00 01/28/17 15:06 01/28/17 15:06 01/28/17 12:00 01/28/17 12:31 Results - Labs CBC & Chem 7: 01/27/17 03:57 01/27/17 03:57 Labs: Laboratory Last Values WBC 7.4 K/mm3 (4.5-11.0) 01/27/17 03:57 RBC 6.00 M/mm3 (3.65-5.03) H 01/27/17 03:57 Hgb 16.2 gm/dl (10.1-14.3) H 01/27/17 03:57 Hct 53.7 % (30.3-42.9) H 01/27/17 03:57 MCV 90 fl (79-97) 01/27/17 03:57 MCH 27 pg (28-32) L 01/27/17 03:57 MCHC 30 % (30-34) 01/27/17 03:57 RDW 19.9 % (13.2-15.2) H 01/27/17 03:57 Plt Count 79 K/mm3 (140-440) L 01/27/17 03:57 Lymph % (Auto) 5.3 % (13.4-35.0) L 01/27/17 03:57 Jerauld % (Auto) 14.4 % (0.0-7.3) H 01/27/17 03:57 Eos % (Auto) 0.1 % (0.0-4.3) 01/27/17 03:57 Baso % (Auto) 0.2 % (0.0-1.8) 01/27/17 03:57 Lymph # 0.4 K/mm3 (1.2-5.4) L 01/27/17 03:57 Jerauld # 1.1 K/mm3 (0.0-0.8) H 01/27/17 03:57 Eos # 0.0 K/mm3 (0.0-0.4) 01/27/17 03:57 Baso # 0.0 K/mm3 (0.0-0.1) 01/27/17 03:57 Add Manual Diff TNR 01/24/17 18:50 Seg Neutrophils % 80.0 % (40.0-70.0) H 01/27/17 03:57 Seg Neutrophils # 5.9 K/mm3 (1.8-7.7) 01/27/17 03:57 PT 15.9 Sec. (12.2-14.9) H 01/26/17 05:25 INR 1.28 (0.87-1.13) H 01/26/17 05:25 APTT 26.4 Sec. (24.2-36.6) 01/24/17 19:27 D-Dimer 1566.79 ng/mlDDU (0-234) H 01/24/17 18:50 POC ABG pH 7.399 (7.35-7.45) 01/28/17 07:27 POC ABG pCO2 57.3 (35-45) H 01/28/17 07:27 POC ABG pO2 75 (80-105) L 01/28/17 07:27 POC ABG HCO3 35.5 01/28/17 07:27 POC ABG Total CO2 37 01/28/17 07:27 POC ABG O2 Sat 94 01/28/17 07:27 POC ABG Base Excess 11 01/28/17 07:27 FiO2 40 % 01/28/17 07:27 Sodium 136 mmol/L (137-145) L 01/27/17 03:57 Potassium 4.8 mmol/L (3.6-5.0) 01/27/17 03:57 Chloride 93.8 mmol/L (98-107) L 01/27/17 03:57 Carbon Dioxide 29 mmol/L (22-30) 01/27/17 03:57 Anion Gap 18 mmol/L 01/27/17 03:57 BUN 47 mg/dL (7-17) H 01/27/17 03:57 Creatinine 1.9 mg/dL (0.7-1.2) H 01/27/17 03:57 Estimated GFR 27 ml/min 01/27/17 03:57 BUN/Creatinine Ratio 24.73 % 01/27/17 03:57 Glucose 113 mg/dL (65-100) H 01/27/17 03:57 Calcium 8.2 mg/dL (8.4-10.2) L 01/27/17 03:57 Iron 43 ug/dL (37-170) 01/26/17 00:37 TIBC 308.00 mcg/dL (250-450) 01/26/17 00:37 Transferrin 220 mg/dl (192-382) 01/26/17 00:37 Ferritin 49.0 ng/mL (13.0-400.0) 01/26/17 00:37 Total Bilirubin 1.70 mg/dL (0.1-1.2) H 01/26/17 05:25 AST 34 units/L (5-40) 01/26/17 05:25 ALT 38 units/L (7-56) 01/26/17 05:25 Alkaline Phosphatase 75 units/L (35-129) 01/26/17 05:25 Total Creatine Kinase 97 units/L (30-135) 01/25/17 03:33 CK-MB (CK-2) 5.5 ng/mL (0.0-4.0) H 01/25/17 03:33 CK-MB (CK-2) Rel Index 5.6 (0-4) H 01/25/17 03:33 Troponin T 0.014 ng/mL (0.00-0.029) 01/25/17 03:33 NT-Pro-B Natriuret Pep 9742 pg/mL (0-900) H 01/24/17 18:50 Total Protein 5.6 g/dL (6.3-8.2) L 01/26/17 05:25 Albumin 3.1 g/dL (3.9-5) L 01/26/17 05:25 Albumin/Globulin Ratio 1.2 % 01/26/17 05:25 Fluid Type Ascitic 01/25/17 09:49 Fluid Color Yellow 01/25/17 09:49 Fluid Appearance Hazy 01/25/17 09:49 Fluid WBC 50 /mm3 01/25/17 09:49 Fluid RBC 358 /mm3 01/25/17 09:49 Fluid Seg Neutrophils 30.0 % 01/25/17 09:49 Fluid Lymphocytes 51.0 % 01/25/17 09:49 Fluid Reactive Lymphs 0 % 01/25/17 09:49 Fluid Monocytes 19.0 % 01/25/17 09:49 Fluid Eosinophils 0 % 01/25/17 09:49 Fluid Basophils 0 % 01/25/17 09:49 Blood Type O POSITIVE 01/25/17 08:33 Antibody Screen TNR 01/25/17 08:33 OUSMANE Antibody Screen Negative 01/25/17 08:33 Crossmatch See Detail 01/25/17 08:33
[2017-01-28 21:09] VITALS: BP 122/86
[2017-01-28 22:50] LABS: ISTAT Base Excess 11; ISTAT HCO3 37.1; ISTAT PCO2 71.3 (35-45); ISTAT PH 7.324 (7.35-7.45); ISTAT PO2 75 (80-105); ISTAT SO2 93; ISTAT TCO2 39
== END 2017-01-28 22:00 | disposition short-term general hospital (02) | DRG 291 ==
LOC: ED 17:25 → 4A 21:35 → CC1 01-25 22:43
PROVIDERS: ADMIT Internal Medicine; ATTEND Internal Medicine
PROC: 5A09357 Assistance with Respiratory Ventilation, Less than 24 Consecutive Hours, Continuous Positive Airway Pressure (ICD-10-PCS; 2017-01-24)
PROC: 0W9G3ZZ Drainage of Peritoneal Cavity, Percutaneous Approach (ICD-10-PCS; principal; 2017-01-25)
PROC: 30233N1 Transfusion of Nonautologous Red Blood Cells into Peripheral Vein, Percutaneous Approach (ICD-10-PCS; 2017-01-25)
PROC: 3E0234Z Introduction of Serum, Toxoid and Vaccine into Muscle, Percutaneous Approach (ICD-10-PCS; 2017-01-25)
PROC: 4A033R1 Measurement of Arterial Saturation, Peripheral, Percutaneous Approach (ICD-10-PCS; 2017-01-26)
DX: I50.33 Acute on chronic diastolic (congestive) heart failure (principal); J96.01 Acute respiratory failure with hypoxia; N17.0 Acute kidney failure with tubular necrosis; J96.02 Acute respiratory failure with hypercapnia; J90 Pleural effusion, not elsewhere classified; R18.8 Other ascites; E66.2 Morbid (severe) obesity with alveolar hypoventilation; Z68.42 Body mass index [BMI] 45.0-49.9, adult; J81.0 Acute pulmonary edema; E87.5 Hyperkalemia; D69.6 Thrombocytopenia, unspecified; D75.1 Secondary polycythemia; J44.9 Chronic obstructive pulmonary disease, unspecified; J20.9 Acute bronchitis, unspecified; I95.9 Hypotension, unspecified; I27.81 Cor pulmonale (chronic); D64.9 Anemia, unspecified; I27.2 Other secondary pulmonary hypertension; Z88.8 Allergy status to other drugs, medicaments and biological substances; Z82.49 Family history of ischemic heart disease and other diseases of the circulatory system; Z23 Encounter for immunization
CPT/HCPCS: 36415; 36600; 49083; 51702; 71010; 71275; 74177; 80048; 80053; 82040; 82150; 82550; 82553; 82728; 82803; 82947; 83550; 83605; 83880; 84160; 84466; 84484; 85025; 85379; 85610; 85730; 86850; 86900; 86901; 86920; 87116; 89051; 90686; 90732; 93005; 93010; 93306; 94640; 94660; 94760; 96365; 96368; 96375; 99292; C1729; J1120; J1644; J1940; J2405; J7050; P9047; Q9967